=== PATIENT | male | born 1940 | race Caucasian/White ===

== ENCOUNTER 2017-12-28 16:28 | Inpatient (IN) | payer BC, OTHER ==
[~2017-12-28] VITALS: Ht 170.2 cm; Wt 75.2 kg
[~2017-12-28 16:28] MED LIST: CHOL100027 PO; CLON1TAB3 PO; FLM4 PO; IRON PO; LPT10 PO; LSN25 PO; NRN100 PO; PIOG1TAB23 PO; ROPI1TAB29 PO
[2017-12-28] MEDS ORDERED: SODIUM CHLORIDE 0.9% 1000ML 1,000 ML IV STA ×2 (16:51→17:54)
[2017-12-28 17:01] LABS: BASO % 0.1 %; BASO ABS # 0.01 K/uL (0-0.2); EOS % 1.1 %; EOS ABS # 0.08 K/uL (0-0.5); HEMATOCRIT 37.7 % (42-52); HEMOGLOBIN 12.8 g/dL (14.0-18.0); IG# 0.01 K/uL (0.00-0.02); LYMPH ABS # 1.56 K/uL (1.2-3.4); MEAN CELL VOLUME 91.5 fL (80-100); MEAN CORPUSCULAR HEMOGLOBIN 31.1 pg (25-34); MEAN PLATELET VOLUME 9.9 fL (7.4-10.4); MONO % 10.8 %; NEUT % 66.9 %; NEUT ABS # 4.98 K/uL (1.4-6.5); PLATELET COUNT 130 K/uL (130-400); RED CELL DISTRIBUTION WIDTH CV 14.2 % (11.5-14.5); RED CELL DISTRIBUTION WIDTH SD 47.3 fL (36.4-46.3); WHITE BLOOD COUNT 7.44 K/uL (4.8-10.8)
--- NOTE | 2017-12-28 17:12 | EMERGENCY ROOM VISIT NOTE ---
History Report prepared by [place]: Nirali Green Under the Supervision of: Dr. Aric Barker M.D. First contact with patient: 16:38 Chief Complaint: KIDNEY STONE Stated Complaint: KIDNEY STONES, ETC History of Present Illness The patient is a 77 year old male who presents to the Emergency Room with complaints of waxing and waning left-sided flank pain for the past 8 days. His pain has been constant for the past two days. He developed nausea and vomiting and has not had much of an appetite. He went to the [id number] yesterday and had an US. He had follow-up blood work and a CT scan today which revealed an 8mm distal left ureteral stone with hydronephrosis and perinephric stranding , trace free fluid in the left peritoneum, and bilateral nephrolithiasis. He had a creatinine that is at 2.6 from his baseline of 1.8. He was sent to the ED for further evaluation. The patient states that his pain has resolved this afternoon and he currently denies any left-sided flank pain or abdominal pain. The patient does report that he has burning with urination and pain in his penis with urination. He also notes diarrhea 2 days ago which has resolved. He does have a history of kidney stones. The patient denies fevers, chest pain, shortness of breath, and any pain or swelling in his legs. He does not take any blood thinners. He denies any significant cardiac history. The patient has not taken anything for his pain. He denies any modifying factors. Source of History: patient Onset: 8 days ago Position: other (left flank) Timing: waxes/wanes Modifying Factors (Worsening): urination Modifying Factors (Relieving): other (none) Associated Symptoms: + diarrhea, + urinary symptoms, No fevers, No chest pain, No SOB Review of Systems See HPI for pertinent positives & negatives. A total of 10 systems reviewed and were otherwise negative. Past Medical & Surgical Medical Problems: (1) CKD (chronic kidney disease), stage III (2) Diabetes (3) DM type 2 (diabetes mellitus, type 2) (4) GERD (gastroesophageal reflux disease) (5) HTN (hypertension) (6) Kidney stone (7) Open fracture of left great toe (8) Prostate cancer (9) Restless leg syndrome Surgical Problems: (1) H/O gastric bypass (2) History of eye surgery (3) History of hernia repair Family History Diabetes mellitus FHx: cancer Stroke Social History Smoking Status: Former Smoker Smokeless Tobacco Use: No Alcohol Use: occasionally Drug Use: none Marital Status: Housing Status: lives with family Occupation Status: retired Current/Historical Medications Scheduled Atorvastatin (Lipitor), 40 MG PO DAILY Calcitriol (Calcitriol), 0.25 MCG PO DAILY Cholecalciferol (Vitamin D3), 1,000 INTER.UNIT PO DAILY Clonazepam (Klonopin), 1 MG PO HS Ferrous Sulfate (Ferrous Sulfate), 325 MG PO DAILY Gabapentin (Gabapentin), 200 MG PO HS Linagliptin (Tradjenta), 5 MG PO DAILY Metformin HCl (Metformin HCl), 500 MG PO BIDM Multiple Minerals W/ Vitamins (Calcium Citrate +), 2 TAB PO BID Omeprazole (Prilosec), 20 MG PO DAILY Pediatric Multiple Vitamins W/ (Flintstones Plus Iron), 1 TAB PO BID Pioglitazone Hcl (Pioglitazone Hcl), 30 MG PO DAILY Ropinirole HCl (Ropinirole HCl), 1 MG PO QPM Ropinirole Hydrochloride (Requip), 0.5 MG PO QPM Tamsulosin HCl (Tamsulosin HCl), 0.4 MG PO DAILY Valsartan (Valsartan), 40 MG PO DAILY Scheduled PRN Furosemide (Furosemide), 20 MG PO DAILY PRN for Fluid Retention/Weight Gain Hydrocodone/Acetaminophen 5MG/325MG ([place] 5MG/325MG), 1 TABLET PO Q6H PRN for Severe Pain Ondansetron Hcl (Zofran), 8 MG PO Q8 PRN for Nausea Allergies Coded Allergies: No Known Allergies (Verified , 12/28/17) Physical Exam Vital Signs Date Time Temp Pulse Resp B/P (MAP) Pulse Ox O2 Delivery O2 Flow Rate FiO2 12/28/17 20:06 63 105/51 98 12/28/17 18:11 84 112/68 96 Room Air 12/28/17 16:34 36.6 102 20 106/70 99 Room Air Physical Exam GENERAL: Patient is dehydrated appearing and in no acute distress. EYES: No scleral icterus, unremarkable pupils. ENT: Mucous membranes dry, no nasal congestion. NECK: No masses appreciated, no meningismus, trachea is midline. RESPIRATORY: No dyspnea. Clear to auscultation and equal bilaterally. No wheeze , no rhonchi. CARDIOVASCULAR: Tachycardic rate and regular rhythm. No murmurs, rubs, gallops appreciated. GASTROINTESTINAL: Abdomen soft, nontender, no peritonitis. Bowel sounds positive. No masses appreciated. BACK: No midline tenderness, no CVA tenderness EXTREMITIES: Normal motion all extremities, no cyanosis, no edema. NEUROLOGIC: Alert and oriented, no acute motor or sensory deficits, no focal weakness, cranial nerves grossly intact. SKIN: No rash, no jaundice, no diaphoresis. Medical Decision & Procedures Laboratory Results 12/28/17 16:50 Red Blood Count 4.12, Mean Corpuscular Volume 91.5, Mean Corpuscular Hemoglobin 31.1, Mean Corpuscular Hemoglobin Concent 34.0, Mean Platelet Volume 9.9, Neutrophils (%) (Auto) 66.9, Lymphocytes (%) (Auto) 21.0, Monocytes (%) (Auto) 10.8, Eosinophils (%) (Auto) 1.1, Basophils (%) (Auto) 0.1, Neutrophils # (Auto ) 4.98, Lymphocytes # (Auto) 1.56, Monocytes # (Auto) 0.80, Eosinophils # (Auto ) 0.08, Basophils # (Auto) 0.01 12/28/17 16:50 Test 12/28/17 16:50 12/28/17 17:52 White Blood Count 7.44 K/uL (4.8-10.8) Red Blood Count 4.12 M/uL (4.7-6.1) Hemoglobin 12.8 g/dL (14.0-18.0) Hematocrit 37.7 % (42-52) Mean Corpuscular Volume 91.5 fL (80-100) Mean Corpuscular Hemoglobin 31.1 pg (25-34) Mean Corpuscular Hemoglobin Concent 34.0 g/dl (32-36) Platelet Count 130 K/uL (130-400) Mean Platelet Volume 9.9 fL (7.4-10.4) Neutrophils (%) (Auto) 66.9 % Lymphocytes (%) (Auto) 21.0 % Monocytes (%) (Auto) 10.8 % Eosinophils (%) (Auto) 1.1 % Basophils (%) (Auto) 0.1 % Neutrophils # (Auto) 4.98 K/uL (1.4-6.5) Lymphocytes # (Auto) 1.56 K/uL (1.2-3.4) Monocytes # (Auto) 0.80 K/uL (0.11-0.59) Eosinophils # (Auto) 0.08 K/uL (0-0.5) Basophils # (Auto) 0.01 K/uL (0-0.2) RDW Standard Deviation 47.3 fL (36.4-46.3) RDW Coefficient of Variation 14.2 % (11.5-14.5) Immature Granulocyte % (Auto) 0.1 % Immature Granulocyte # (Auto) 0.01 K/uL (0.00-0.02) Prothrombin Time 10.7 SECONDS (9.0-12.0) Prothromb Time International Ratio 1.0 (0.9-1.1) Activated Partial Thromboplast Time 25.6 SECONDS (21.0-31.0) Partial Thromboplastin Ratio 1.0 Urine Color YELLOW Urine Appearance CLOUDY (CLEAR) Urine pH 5.0 (4.5-7.5) Urine Specific [place] 1.018 (1.000-1.030) Urine Protein TRACE (NEG) Urine Glucose (UA) NEG (NEG) Urine Ketones NEG (NEG) Urine Occult Blood 3+ (NEG) Urine Nitrite NEG (NEG) Urine Bilirubin NEG (NEG) Urine Urobilinogen NEG (NEG) Urine Leukocyte Esterase SMALL (NEG) Urine WBC (Auto) 5-10 /hpf (0-5) Urine RBC (Auto) >30 /hpf (0-4) Urine Hyaline Casts (Auto) 1-5 /lpf (0-5) Urine Epithelial Cells (Auto) 20-30 /lpf (0-5) Urine Bacteria (Auto) 1+ (NEG) Urine Yeast (Auto) (NONE PRSENT) Anion Gap 11.0 mmol/L (3-11) Est Creatinine Clear Calc Drug Dose 20.1 ml/min Estimated GFR () 24.0 Estimated GFR (Non- 20.7 BUN/Creatinine Ratio 16.6 (10-20) Calcium Level 8.6 mg/dl (8.5-10.1) C-Reactive Protein 2.29 mg/dl (0-0.29) Laboratory results as reviewed by me. Medications Administered Medications (Trade) Dose Ordered Sig/Rose Route Start Time Stop Time Status Last Admin Dose Admin Sodium Chloride 1,000 ml @ 999 mls/hr Q1H1M STAT IV 12/28/17 16:51 12/28/17 17:51 DC 12/28/17 16:51 999 MLS/HR Sodium Chloride 1,000 ml @ 100 mls/hr Q10H STAT IV 12/28/17 17:54 12/29/17 03:53 12/28/17 18:05 100 MLS/HR Ceftriaxone Sodium 1 gm/ Dextrose 50 ml @ 100 mls/hr ONE STAT IV 12/28/17 19:35 12/28/17 20:04 DC 12/28/17 19:50 100 MLS/HR ED Course 1638: The patient was evaluated in room A4B. A complete history and physical exam was performed. 1650: NSS 1000 ml @ 999 mls/hr IV 1743: The patient passed a stone. He is feeling better. 1753: NSS 1000 ml @ 100 mls/hr IV 1814: I spoke with Josseline Guy PA-C. We discussed the patient's case. The patient will be evaluated by the [facility] for further management. 1817: I reassessed the patient at this time. He is feeling better and resting comfortably. I discussed the results and treatment plan with the patient. I answered all pertaining questions that he had. He expressed understanding and verbalized agreement. Medical Decision Differential: Renal Colic, Pyelonephritis, Hydronephrosis, Appendicitis, Diverticulitis, Retroperitoneal Bleed/Infection, Aortic Pathology, MSK, Neurologic Pathology, amongst other pathologies entertained. 77 yr old male sent over by clinic for left distal ureteral stone with hydro in setting of acute renal failure. Given IV fluids and patient passed 2 stones. Having no pain. Not septic appearing and UA seems more consistent with stone and some epi's than infected. Without pain I feel he has likely passed most stone pieces. Regardless he will need to come in for his renal failure though I do not feel he requires emergent OR as he is completely asymptomatic and not septic currently. Breathing comfortably with initial 1 L NSS and further hydration ordered. Medication Reconcilliation Current Medication List: was personally reviewed by me Blood Pressure Screening Patient's blood pressure: Normal blood pressure Consults Time Called: 1810 Consulting Physician: Josseline Guy PA-C Returned Call: 1814 I spoke with Josseline Guy PA-C. We discussed the patient's case. The patient will be evaluated by the [facility] for further management. Impression Primary Impression: Acute renal failure Additional Impressions: Hydronephrosis, left Ureteral calculus Scribe Attestation The scribe's documentation has been prepared under my direction and personally reviewed by me in its entirety. I confirm that the note above accurately reflects all work, treatment, procedures, and medical decision making performed by me. Departure Information Dispostion Being Evaluated By Hospitalist Referrals Shashi Lewis III, M.D. (PCP) Patient Instructions [facility] Problem Qualifiers
[2017-12-28 17:19] LABS: PTT PATIENT 25.6 SECONDS (21.0-31.0)
[2017-12-28 17:28] LABS: CALCIUM 8.6 mg/dl (8.5-10.1); CREATININE 2.78 mg/dl (0.60-1.40)
[2017-12-28] MEDS ORDERED: LSX20 PO (18:26)
[2017-12-28] MEDS ORDERED: ROPI0.5T PO (18:26)
[2017-12-28] MEDS ORDERED: LINA1TAB PO (18:26)
[2017-12-28] MEDS ORDERED: VALS-56 PO (18:26)
[2017-12-28] MEDS ORDERED: LPT40 PO (18:26)
[2017-12-28] MEDS ORDERED: OMEP20CA9 PO (18:26)
[2017-12-28] MEDS ORDERED: GLC500 PO (18:26)
[2017-12-28] MEDS ORDERED: CALC1CAP36 PO (18:26)
[2017-12-28] MEDS ORDERED: CHOL1000 PO (18:29)
[2017-12-28] MEDS ORDERED: ONDA-170 PO (18:29)
[2017-12-28] MEDS ORDERED: FERR325T5 PO (18:34)
[2017-12-28] MEDS ORDERED: HYDR-5688 PO (18:34)
[2017-12-28] MEDS ORDERED: MULT-360 PO ×2 (18:34→19:16)
[2017-12-28] MEDS ORDERED: PEDICHW44 PO (18:34)
[2017-12-28] MEDS ORDERED: ACETAMINOPHEN 325 MG TAB PO PRN (19:15)
[2017-12-28] MEDS ORDERED: ONDANSETRON INJ 2 MG/ML 2 ML VIAL IV PRN (19:15)
[2017-12-28] MEDS ORDERED: MAGNESIUM HYDROXIDE SUSP 30 ML UDC PO PRN (19:15)
[2017-12-28] MEDS ORDERED: CEFTRIAXONE SOD INJ 1 GM in DEXTROSE 5% ADD-VANTAGE 50ML 50 ML IV STA (19:35)
[2017-12-28] MEDS ORDERED: GLUCAGON FOR INJ 1 MG VIAL SQ PRN ×2 (20:00→20:30)
[2017-12-28] MEDS ORDERED: GLUCOSE 40% GEL 15 GM TUBE PO PRN ×2 (20:00→20:30)
[2017-12-28] MEDS ORDERED: GLUCOSE 10 TABS/TUBE PO PRN ×2 (20:00→20:30)
[2017-12-28] MEDS ORDERED: DEXTROSE 50% 50 ML SYR IV PRN ×2 (20:00→20:30)
--- NOTE | 2017-12-28 20:04 | History and Physical ---
History & Physical Date & Time of Service: Dec 28, 2017 at 19:24 Chief Complaint: Kidney Stones, Etc Primary Care Physician: Shashi Lewis III, M.D. History of Present Illness Source: patient, clinic records, hospital records Pt is 77 y/o M with PMH prostate CA s/p radiation, kidney stones, HTN, dyslipidemia, GERD, DM II, CKD III presented to ER with chief complaint left flank pain 1 week. Patient reports left flank pain with radiation to left groin for the past 7-8 days with increased pain past 2 days. Had some nausea past 2 days. Hasn't been eating well past 2 days, however reports has been drinking fluids. Having some dysuria and noticed some hematuria. Reports was seen outpatient urgent care yesterday and was told had blood in his urine. Patient followed up with PCP today and had an CT abdomen pelvis showing left hydroureter and hydronephrosis with 8 mm obstructing stone within the left distal ureter, with associated left perinephric stranding. He was prescribed hydrocodone as needed pain and Zofran as needed nausea. However patient states he did not hit felt yet as he was referred to ER. Since arrival to ER patient reports that he is straining his urine and passed kidney stone. Since patient without any discomfort. Denies fever/chills, diaphoresis, V/D/C, GARRIDO, dizziness, syncope, vision changes, neck pain, CP, SOB, orthopnea, palpitations, cough, sore throat, choking, otalgia, rhinorrhea, paresthesias, weakness, extremity weakness, extremity edema, rashes. Past Medical/Surgical History Medical Problems: (1) CKD (chronic kidney disease), stage III Status: Chronic (2) DM type 2 (diabetes mellitus, type 2) Status: Chronic (3) GERD (gastroesophageal reflux disease) Status: Chronic (4) HTN (hypertension) Status: Chronic (5) Open fracture of left great toe Status: Resolved (6) Prostate cancer Permanent Comment: s/p radiation Status: Chronic Surgical Problems: (1) H/O gastric bypass Status: Resolved (2) History of eye surgery Status: Resolved (3) History of hernia repair Status: Resolved Family History Diabetes mellitus FHx: cancer Stroke Social History Smoking Status: Former Smoker Smokeless Tobacco Use: No Alcohol Use: occasionally Drug Use: none Marital Status: Occupational Status: retired Allergies Coded Allergies: No Known Allergies (Verified , 12/28/17) Home Medications Scheduled Atorvastatin (Lipitor), 40 MG PO DAILY Calcitriol (Calcitriol), 0.25 MCG PO DAILY Cholecalciferol (Vitamin D3), 1,000 INTER.UNIT PO DAILY Clonazepam (Klonopin), 1 MG PO HS Ferrous Sulfate (Ferrous Sulfate), 325 MG PO DAILY Gabapentin (Gabapentin), 200 MG PO HS Linagliptin (Tradjenta), 5 MG PO DAILY Metformin HCl (Metformin HCl), 500 MG PO BIDM Multiple Minerals W/ Vitamins (Calcium Citrate +), 2 TAB PO BID Omeprazole (Prilosec), 20 MG PO DAILY Pediatric Multiple Vitamins W/ (Flintstones Plus Iron), 1 TAB PO BID Pioglitazone Hcl (Pioglitazone Hcl), 30 MG PO DAILY Ropinirole HCl (Ropinirole HCl), 1 MG PO QPM Ropinirole Hydrochloride (Requip), 0.5 MG PO QPM Tamsulosin HCl (Tamsulosin HCl), 0.4 MG PO DAILY Valsartan (Valsartan), 40 MG PO DAILY Scheduled PRN Furosemide (Furosemide), 20 MG PO DAILY PRN for Fluid Retention/Weight Gain Hydrocodone/Acetaminophen 5MG/325MG ([place] 5MG/325MG), 1 TABLET PO Q6H PRN for Severe Pain Ondansetron Hcl (Zofran), 8 MG PO Q8 PRN for Nausea Review of Systems Constitutional: No fever, No chills, No sweats, No weight loss Eyes: No eye pain, No redness, No diplopia ENT: No hearing loss, No unusual epistaxis, No nasal symptoms, No sore throat, No tinnitus, No trouble swallowing Respiratory: No cough, No sputum, No wheezing, No shortness of breath, No dyspnea on exertion, No dyspnea at rest, No hemoptysis Cardiovascular: No chest pain, No orthopnea, No PND, No edema, No palpitations Abdomen: + problem reported (see HPI), No GI bleeding Musculoskeletal: No joint pain, No muscle pain, No swelling, No calf pain Genitourinary - Male: + problem reported (See HPI) Neurologic: No weakness, No numbness/tingling, No vertigo Hematologic / Lymphatic: No abnormal bleeding/bruising, No clotting problems, No swollen lymph nodes, No night sweats Integumentary: No rash, No itch Physical Exam Vital Signs Date Time Temp Pulse Resp B/P (MAP) Pulse Ox O2 Delivery O2 Flow Rate FiO2 12/28/17 18:11 84 112/68 96 Room Air 12/28/17 16:34 36.6 102 20 106/70 99 Room Air General Appearance: WD/WN, no apparent distress Head: normocephalic, atraumatic ENT: hearing grossly normal, pharynx normal, + pertinent finding (mucous membranes moist) Neck: supple, no JVD, trachea midline Respiratory/Chest: lungs clear, normal breath sounds, no respiratory distress Cardiovascular: regular rate, rhythm, no murmur, normal peripheral pulses Abdomen/GI: normal bowel sounds, non tender, soft Back: no CVA tenderness Extremities/Musculoskelatal: normal inspection, normal capillary refill, no pedal edema, normal range of motion, non-tender Neurologic/Psych: alert, normal mood/affect, oriented x 3 Skin: normal color, warm/dry Diagnostics Laboratory Results Results Past 24 Hours Test 12/28/17 16:50 12/28/17 17:52 Range/Units White Blood Count 7.44 4.8-10.8 K/uL Red Blood Count 4.12 4.7-6.1 M/uL Hemoglobin 12.8 14.0-18.0 g/dL Hematocrit 37.7 42-52 % Mean Corpuscular Volume 91.5 80-100 fL Mean Corpuscular Hemoglobin 31.1 25-34 pg Mean Corpuscular Hemoglobin Concent 34.0 32-36 g/dl Platelet Count 130 130-400 K/uL Mean Platelet Volume 9.9 7.4-10.4 fL Neutrophils (%) (Auto) 66.9 % Lymphocytes (%) (Auto) 21.0 % Monocytes (%) (Auto) 10.8 % Eosinophils (%) (Auto) 1.1 % Basophils (%) (Auto) 0.1 % Neutrophils # (Auto) 4.98 1.4-6.5 K/uL Lymphocytes # (Auto) 1.56 1.2-3.4 K/uL Monocytes # (Auto) 0.80 0.11-0.59 K/uL Eosinophils # (Auto) 0.08 0-0.5 K/uL Basophils # (Auto) 0.01 0-0.2 K/uL RDW Standard Deviation 47.3 36.4-46.3 fL RDW Coefficient of Variation 14.2 11.5-14.5 % Immature Granulocyte % (Auto) 0.1 % Immature Granulocyte # (Auto) 0.01 0.00-0.02 K/uL Prothrombin Time 10.7 9.0-12.0 SECONDS Prothromb Time International Ratio 1.0 0.9-1.1 Activated Partial Thromboplast Time 25.6 21.0-31.0 SECONDS Partial Thromboplastin Ratio 1.0 Urine Color YELLOW Urine Appearance CLOUDY CLEAR Urine pH 5.0 4.5-7.5 Urine Specific [place] 1.018 1.000-1.030 Urine Protein TRACE NEG Urine Glucose (UA) NEG NEG Urine Ketones NEG NEG Urine Occult Blood 3+ NEG Urine Nitrite NEG NEG Urine Bilirubin NEG NEG Urine Urobilinogen NEG NEG Urine Leukocyte Esterase SMALL NEG Urine WBC (Auto) 5-10 0-5 /hpf Urine RBC (Auto) >30 0-4 /hpf Urine Hyaline Casts (Auto) 1-5 0-5 /lpf Urine Epithelial Cells (Auto) 20-30 0-5 /lpf Urine Bacteria (Auto) 1+ NEG Urine Yeast (Auto) NONE PRSENT Sodium Level 138 136-145 mmol/L Potassium Level 4.0 3.5-5.1 mmol/L Chloride Level 108 98-107 mmol/L Carbon Dioxide Level 19 21-32 mmol/L Anion Gap 11.0 3-11 mmol/L Blood Urea Nitrogen 46 7-18 mg/dl Creatinine 2.78 0.60-1.40 mg/dl Est Creatinine Clear Calc Drug Dose 20.1 ml/min Estimated GFR () 24.0 Estimated GFR (Non- 20.7 BUN/Creatinine Ratio 16.6 10-20 Random Glucose 100 70-99 mg/dl Calcium Level 8.6 8.5-10.1 mg/dl C-Reactive Protein 2.29 0-0.29 mg/dl Microbiology Results 12/28/17 Urine Culture, Received Pending Diagnostic Radiology 12/28/2017 2:[address] abdomen/pelvis without contrast -done outpatient Impression: 1. Obstructing distal left ureteral stone with associated left hydroureter, hydronephrosis and perinephritic stranding. Superimposed infection is not excluded on this noncontrast examination. 2. Trace free fluid, most notably within the left retroperitoneum. 3. Bilateral nonobstructing nephrolithiasis. Impression Assessment and Plan RENAL COLIC/HYDRONEPHROSIS Pt passed kidney stone while in ER today. Stone sent for analysis. Pt without discomfort or nausea since passing stone. No leukocytosis. U/A: 3+blood, small leukocyte esterase, 5-10 WBC, >30 RBC, 20-30 epithelial, 1+bacteria -continue flomax -IVF -Rocephin IV initial dose while urine culture pending -monitor CBC, PRP LIMA Cr: 2.7. baseline 1.8 -IVF -monitor renal functions -avoid nephrotoxic agents when possible -consider nephrology consult if no improvement Hx PROSTATE CA S/P RADIATION -continue flomax CHRONIC ANEMIA Hgb: 12.8 (baseline 12). No active bleeding -monitor cbc DM II HA1c: 6.0 on 09/2017 -hold oral agents -Novolog sliding scale per protocol HTN stable -hold valsartan, lasix at this time DYSLIPIDEMIA -continue atorvastatin GERD -continue PPI RLS -continue requip DVT Prophylaxis -Heparin SQ Disposition admit tele Full Code as per discussion with pt Follows with Dr Lewis for routine care Pt was seen with Dr Whyte. See addendum Attending Note: Patient is a 77 yr male with multiple comorbidities presents with history of left flank pain radiating to left groin pain since 1 week duration. Reports associated nausea and vomiting. Patient also noticed hematuria and dysuria. While in ED, patient passed the stone and currently is pain free. Denies any chest pain, SOB, dizziness, fever, chills. Physical Exam: Vitals signs as noted above General Appearance:Moderately built and nourished, no apparent distress Head: normocephalic, Atraumatic Eyes: normal inspection, EOMI, PERRL Neck: supple, Trachea midline Respiratory/Chest: Normal breath sounds, CTA Cardiovascular: S1, S2, + Murmur Abdomen/GI:Soft, Non tender, Bowel sounds present Extremities/Musculoskelatal:normal inspection, no edema Neurologic/Psych:AAOX3, grossly no focal neurological deficits Skin:normal color,warm Assessment and Plan: Renal Colic Obstructive Uropathy Spontaneously passed the stone while in ED Continue IV fluids, flomax UA contaminated: Will give 1 dose of ceftriaxone FU cultures LIMA on CKD III: 2/2 above Hold Valsartan, lasix IV fluids Monitor renal function avoid Nephrotoxic agents as able I personally reviewed the record. Patient is interviewed and examined at bedside. Patient's care is coordinated with Ashlyn Liz PA-C. Please refer to the documentation above for details of patient's presentation and for discussion of other issues. Resuscitation Status Full code VTE Prophylaxis Will order VTE Prophylaxis: Yes Additional Copies To Shashi Lewis III, M.D.
[2017-12-28 20:19] VITALS: BP 111/69; PULSE 75; TEMP 36.8; O2SAT 99; Ht 170.2 cm; Wt 75.2 kg
[2017-12-28] MEDS: SODIUM CHLORIDE 0.9% 1000ML 1,000 ML IV SCH (20:33)
[2017-12-28] MEDS ORDERED: ROPINIROLE HCL 0.25 MG TAB PO SCH (21:00)
[2017-12-28] MEDS ORDERED: GABAPENTIN 100 MG CAP PO SCH (21:00)
[2017-12-28] MEDS: INSULIN ASPART 100 UNITS/ML 3 ML PEN SC SCH (21:00)
[2017-12-28] MEDS ORDERED: CLONAZEPAM 1 MG TAB PO SCH (21:00)
[2017-12-28] MEDS ORDERED: ROPINIROLE HCL 1 MG TAB PO SCH (21:00)
[2017-12-28] MEDS: FLINTSTONES COMPLETE CHEWABLE TAB PO SCH (21:38)
[2017-12-28] MEDS: HEPARIN SOD 5000 UNIT/0.5 ML CARP SQ SCH (21:42)
[2017-12-28 22:55] VITALS: BP 108/71; PULSE 77; TEMP 36.6; O2SAT 97
[2017-12-28] MEDS ORDERED: NURSING VERBAL MED ORDER ONE (23:15)
[2017-12-29 00:05] VITALS: O2SAT 98
[2017-12-29 06:55] LABS: HEMOGLOBIN 11.1 g/dL (14.0-18.0); MEAN CELL VOLUME 91.7 fL (80-100); MEAN CORPUSCULAR HEMOGLOBIN 30.8 pg (25-34); MEAN CORPUSCULAR HGB CONC 33.6 g/dl (32-36); MEAN PLATELET VOLUME 9.5 fL (7.4-10.4); PLATELET COUNT 107 K/uL (130-400); RED CELL DISTRIBUTION WIDTH CV 14.3 % (11.5-14.5); RED CELL DISTRIBUTION WIDTH SD 48.3 fL (36.4-46.3); WHITE BLOOD COUNT 5.21 K/uL (4.8-10.8)
[2017-12-29] MEDS: SODIUM CHLORIDE 0.9% 1000ML 1,000 ML IV SCH (07:00)
[2017-12-29 07:19] LABS: CALCIUM 7.7 mg/dl (8.5-10.1); CREATININE 2.18 mg/dl (0.60-1.40)
[2017-12-29 07:41] VITALS: BP_SYST 114; BP_SYST 118; BP_DIAS 70; BP_DIAS 71; PULSE 64; TEMP 36.5; O2SAT 97
[2017-12-29] MEDS: INSULIN ASPART 100 UNITS/ML 3 ML PEN SC SCH ×2 (08:00→12:50)
[2017-12-29 08:19] VITALS: O2SAT 97
[2017-12-29] MEDS: FLINTSTONES COMPLETE CHEWABLE TAB PO SCH (08:47)
[2017-12-29] MEDS: HEPARIN SOD 5000 UNIT/0.5 ML CARP SQ SCH (08:50)
[2017-12-29] MEDS ORDERED: ATORVASTATIN 40 MG TAB PO SCH (09:00)
[2017-12-29] MEDS ORDERED: PANTOprazole SOD 40 MG TAB PO SCH (09:00)
[2017-12-29] MEDS ORDERED: CHOLECALCIFEROL 1000 INTER.UNIT TAB PO SCH (09:00)
[2017-12-29] MEDS ORDERED: TAMSULOSIN HCL 0.4 MG CAP PO SCH (09:00)
[2017-12-29] MEDS ORDERED: PIOGLITAZONE TAB 15 MG TAB PO SCH (09:00)
[2017-12-29] MEDS ORDERED: VALSARTAN 80 MG TAB PO SCH (09:00)
[2017-12-29] MEDS ORDERED: FERROUS SULFATE 325 MG TAB PO SCH (09:00)
[2017-12-29] MEDS ORDERED: CALCITRIOL 0.25 MCG CAP PO SCH (09:00)
[2017-12-29 15:27] VITALS: BP 128/77; PULSE 69; TEMP 37.1; O2SAT 97
[2017-12-29 16:51] VITALS: BP 128/77; PULSE 69; TEMP 37.1; O2SAT 97
--- NOTE | 2017-12-29 17:18 | Progress Note ---
Medicine Progress Note Date & Time of Visit: Dec 29, 2017 at 17:18. Objective Last 8 Hrs Date Time Temp Pulse Resp B/P (MAP) Pulse Ox O2 Delivery O2 Flow Rate FiO2 12/29/17 16:51 37.1 69 16 97 Room Air 12/29/17 15:27 37.1 69 16 128/77 (94) 97 Room Air 12/29/17 15:25 Room Air Physical Exam: General-[] Eyes-[] ENT-[] Neck-[] Lungs-[] Heart-[] Abdomen-[] Extremities-[] Neuro-[] Laboratory Results: Last 24 Hours Test 12/28/17 17:52 12/28/17 20:52 12/29/17 06:30 12/29/17 08:22 Bedside Glucose 117 mg/dl 83 mg/dl White Blood Count 5.21 K/uL Red Blood Count 3.60 M/uL Hemoglobin 11.1 g/dL Hematocrit 33.0 % Mean Corpuscular Volume 91.7 fL Mean Corpuscular Hemoglobin 30.8 pg Mean Corpuscular Hemoglobin Concent 33.6 g/dl RDW Standard Deviation 48.3 fL RDW Coefficient of Variation 14.3 % Platelet Count 107 K/uL Mean Platelet Volume 9.5 fL Sodium Level 142 mmol/L Potassium Level 4.0 mmol/L Chloride Level 111 mmol/L Carbon Dioxide Level 23 mmol/L Anion Gap 7.0 mmol/L Blood Urea Nitrogen 42 mg/dl Creatinine 2.18 mg/dl Est Creatinine Clear Calc Drug Dose 25.7 ml/min Estimated GFR () 32.2 Estimated GFR (Non- 27.8 BUN/Creatinine Ratio 19.1 Random Glucose 87 mg/dl Calcium Level 7.7 mg/dl Test 12/29/17 12:14 Bedside Glucose 90 mg/dl Assessment & Plan Current Inpatient Medications: Current Inpatient Medications Medications (Trade) Dose Ordered Sig/Rose Route Start Time Stop Time Status Last Admin Dose Admin Acetaminophen (Tylenol Tab) 650 mg Q4H PRN PO 12/28/17 19:15 01/27/18 19:14 Magnesium Hydroxide (Milk Of Magnesia Susp) 30 ml Q6H PRN PO 12/28/17 19:15 01/27/18 19:14 Ondansetron HCl (Zofran Inj) 4 mg Q6H PRN IV 12/28/17 19:15 01/27/18 19:14 Heparin Sodium (Porcine) (Heparin Sq 5000 Unit/0.5ml) 5,000 unit Q12H SQ 12/28/17 21:00 01/27/18 20:59 12/29/17 08:50 5,000 UNIT Sodium Chloride 1,000 ml @ 75 mls/hr [id number] IV 12/28/17 20:20 01/27/18 20:19 12/29/17 07:00 75 MLS/HR Atorvastatin Calcium (Lipitor Tab) 40 mg DAILY PO 12/29/17 09:00 01/28/18 08:59 12/29/17 08:47 40 MG Calcitriol (Rocaltrol Cap) 0.25 mcg DAILY PO 12/29/17 09:00 01/28/18 08:59 12/29/17 08:47 0.25 MCG Cholecalciferol (Vitamin D Tab) 1,000 inter.unit DAILY PO 12/29/17 09:00 01/28/18 08:59 12/29/17 08:47 1,000 INTER.UNIT Clonazepam (Klonopin Tab) 1 mg HS PO 12/28/17 21:00 01/27/18 20:59 12/28/17 21:36 1 MG Ferrous Sulfate (Feosol Tab) 325 mg DAILY PO 12/29/17 09:00 01/28/18 08:59 12/29/17 08:47 325 MG Gabapentin (Neurontin Cap) 200 mg HS PO 12/28/17 21:00 01/27/18 20:59 12/28/17 21:37 200 MG Tamsulosin HCl (Flomax Cap) 0.4 mg DAILY PO 12/29/17 09:00 01/28/18 08:59 12/29/17 08:48 0.4 MG Miscellaneous Information (Order Awaiting Action) 1 ea QS N/A 12/29/17 00:00 01/28/18 00:00 Pantoprazole Sodium (Protonix Tab) 40 mg DAILY PO 12/29/17 09:00 01/28/18 08:59 12/29/17 08:48 40 MG Multivitamins (Flintstones Complete Tab) 1 tab BID PO 12/28/17 21:00 01/27/18 20:59 12/29/17 08:47 1 TAB Pioglitazone HCl (ACTos TAB) 30 mg DAILY PO 12/29/17 09:00 01/28/18 08:59 Future Hold 12/29/17 08:48 30 MG Insulin Aspart (novoLOG ASPART) SLIDING SCALE If C... ACHS SC 12/28/17 21:00 01/27/18 20:59 12/29/17 12:50 1 UNITS Glucose (Glucose 40% Gel) 15-30 GRAMS 15 GRAMS... UD PRN PO 12/28/17 20:00 01/27/18 19:59 Glucose (Glucose Chew Tab) 4-8 Tablets 4 Tabl... UD PRN PO 12/28/17 20:00 01/27/18 19:59 Dextrose (Dextrose 50% 50ML Syringe) 25-50ML OF 50% DW IV FOR... UD PRN IV 12/28/17 20:00 01/27/18 19:59 Glucagon (Glucagon Inj) 1 mg UD PRN SQ 12/28/17 20:00 01/27/18 19:59 Glucose (Glucose 40% Gel) 15-30 GRAMS 15 GRAMS... UD PRN PO 12/28/17 20:30 01/27/18 20:29 Glucose (Glucose Chew Tab) 4-8 Tablets 4 Tabl... UD PRN PO 12/28/17 20:30 01/27/18 20:29 Dextrose (Dextrose 50% 50ML Syringe) 25-50ML OF 50% DW IV FOR... UD PRN IV 12/28/17 20:30 01/27/18 20:29 Glucagon (Glucagon Inj) 1 mg UD PRN SQ 12/28/17 20:30 01/27/18 20:29 Ropinirole HCl (Requip Tab) 1 mg DAILY@1800 PO 12/29/17 18:00 01/28/18 17:59 Ropinirole HCl (Requip Tab) 0.5 mg HS PO 12/29/17 21:00 01/28/18 20:59
[2017-12-29] MEDS ORDERED: KFL500 PO (17:20)
[2017-12-29] MEDS ORDERED: ROPINIROLE HCL 1 MG TAB PO SCH (18:00)
[2017-12-29] MEDS ORDERED: ROPINIROLE HCL 0.25 MG TAB PO SCH (21:00)
== END 2017-12-29 19:00 | disposition home or self-care (01) | DRG 694 ==
LOC: C.EDB 16:29 → C.MSN 19:03 → EDBEDREQSVC 19:11 → ENRESERV 19:26
PROVIDERS: ADMIT Internal Medicine; ATTEND Hospitalist
DX: N13.2 Hydronephrosis with renal and ureteral calculous obstruction (principal); N23 Unspecified renal colic; N17.9 Acute kidney failure, unspecified; D64.9 Anemia, unspecified; E11.22 Type 2 diabetes mellitus with diabetic chronic kidney disease; I12.9 Hypertensive chronic kidney disease with stage 1 through stage 4 chronic kidney disease, or unspecified chronic kidney disease; N18.3 Chronic kidney disease, stage 3 (moderate); E78.5 Hyperlipidemia, unspecified; K21.9 Gastro-esophageal reflux disease without esophagitis; G25.81 Restless legs syndrome; Z85.46 Personal history of malignant neoplasm of prostate; Z92.3 Personal history of irradiation; Z87.891 Personal history of nicotine dependence; Z83.3 Family history of diabetes mellitus; Z82.3 Family history of stroke; Z79.84 Long term (current) use of oral hypoglycemic drugs; Z79.899 Other long term (current) drug therapy

== ENCOUNTER → 2017-12-30 | Outpatient (CLI) | payer BC ==
[~2017-12-30] MED LIST changes: +CALC1CAP36 PO; +CHOL1000 PO; -CHOL100027 PO; +FERR325T5 PO; +GLC500 PO; +HYDR-5688 PO; -IRON PO; +KFL500 PO; +LINA1TAB PO; -LPT10 PO; +LPT40 PO; -LSN25 PO; +LSX20 PO; +MULT-360 PO; +OMEP20CA9 PO; +ONDA-170 PO; +PEDICHW44 PO; +ROPI0.5T PO; +VALS-56 PO
--- NOTE | 2017-12-30 14:19 | DIAGNOSTIC IMAGING REPORT ---
KUB CLINICAL HISTORY: Dysuria. Left-sided kidney stone. Findin AP supine abdominal radiographs are correlated with abdominal CT dated 12/28/2017. There is a nonobstructed abdominal bowel gas pattern noting moderate colonic fecal retention. A 9 mm calculus projects over the left vesicoureteral junction. This is consistent with an obstructing ureteral stone when correlated with the 12/28/[address] scan. No additional calculi are seen projecting over either kidney. Suture closure projects over the left upper quadrant. Surgical clips project over the prostate gland. The skeletal structures are osteopenic. Moderate lumbosacral spondylosis and scoliosis is observed. There is heterogeneous sclerotic change noted throughout the bony pelvis. IMPRESSION: 1. There is a 9 mm structure calculus in the distal left ureter. 2. No additional renal calculi are seen by x-ray. 3. Moderate constipation. Colonic contents largely obscured the renal shadows. 4. Heterogeneous sclerotic change is seen throughout the bony pelvis. This is pathologically indeterminant. Metastatic disease is not excluded if there is a history of prostate cancer. Electronically signed by: Lion Heard M.D. 12/30/2017 2:18 PM Dictated Date/Time: 12/30/2017 2:13 PM
== END | disposition home or self-care (01) ==
LOC: C.RADBC 14:03
PROVIDERS: ATTEND Urology
DX: R39.9 Unspecified symptoms and signs involving the genitourinary system (principal); N20.1 Calculus of ureter

== ENCOUNTER → 2018-01-06 | Outpatient (CLI) | payer BC ==
--- NOTE | 2018-01-06 10:47 | DIAGNOSTIC IMAGING REPORT ---
KUB HISTORY: Nephrolithiasis. COMPARISON: KUB 12/30/2017. Outside hospital abdomen and pelvis CT 12/28/2017. FINDINGS: Moderate well-formed stool seen throughout the colon. No evidence for bowel obstruction. No change in the 9 mm stone within the distal left ureter/ureterovesical junction. There are few punctate bilateral renal calculi, unchanged. 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 Patchy sclerotic foci seen within the sacrum, iliac bones, and bilateral acetabula. This remains unchanged. No pneumoperitoneum or pneumatosis. IMPRESSION: 1. No change in the 9 mm stone within the distal left ureter/ureterovesical junction. 2. Stable bilateral nephrolithiasis. 3. Redemonstration of the sclerotic lesions within the pelvis. Electronically signed by: Yazan Gomez M.D. 01/06/2018 10:45 AM Dictated Date/Time: 01/06/2018 10:43 AM
[2018-01-06 12:22] LABS: POTASSIUM 4.5 mmol/L (3.5-5.1)
== END | disposition home or self-care (01) ==
LOC: C.CPL 10:14
PROVIDERS: ATTEND Urology
DX: N20.0 Calculus of kidney (principal)

== ENCOUNTER → 2018-01-07 | Day surgery (SDC) | payer BC ==
[2018-01-06 14:23] VITALS: Ht 170.2 cm; Wt 75.0 kg
[~2018-01-07] VITALS: Ht 170.2 cm; Wt 75.0 kg
[~2018-01-07] MED LIST changes: +ATROPINE SULFATE 0.1 MG/ML 5ML SYR IV PRN; +CIPROFLOXACIN 400MG / D5W IV SCH; +DEXAMETHASONE SOD INJ 4 MG/ML VIAL ONE; +EpHEDrine SULFATE INJ 50 MG/ML AMP IV PRN; +FENTANYL CITRATE INJ 50 MCG/1 ML 2 ML VIAL IV PRN; +FENTANYL CITRATE INJ 50 MCG/1 ML 2 ML VIAL ONE; +HYDROmorphone INJ 2 MG/ML SYR/VIAL IV PRN; +LACTATED RINGER'S 1000ML 1,000 ML IV SCH; +LIDOCAINE HCL 2% 2 ML VIAL (20MG/ML) ONE; +ONDANSETRON INJ 2 MG/ML 2 ML VIAL IV PRN; +ONDANSETRON INJ 2 MG/ML 2 ML VIAL ONE; +OXYCODONE/ACETAMINOPHEN 5-325 TAB PO PRN; +PHENYLEPHRINE 100MCG/ML 5ML SYR IV PRN; +PROPOFOL IV EMULSION 10 MG/ML 20 ML VIAL IV ONE
--- NOTE | 2018-01-07 09:44 | History & Physical Bridge Note ---
H&P Re-Evaluation Bridge Note: I have examined the patient, reviewed the History & Physical and in the interval since the performance of the History & Physical I have noted the following changes of clinical significance: No changes noted
--- NOTE | 2018-01-07 10:41 | Discharge Instructions ---
Discharge Instructions Date of Service Jan 07, 2018. Admission Reason for Admission: Stones Discharge Discharge Diagnosis / Problem: L distal ureteral stone s/p ESWL Discharge Goals Goal(s): Decrease discomfort, Improve function, Improve disease control, Therapeutic intervention Activity Recommendations Activity Limitations: as noted below Lifting Limitations: no more than 25 pounds, gradually increase as tolerated Exercise/Sports Limitations: rest today, gradually increase as tolerated May Resume Sexual Activity: when tolerated Shower/Bathe: no limitations Driving or Machine Use: resume 1 day after discharge . Instructions / Follow-Up Instructions / Follow-Up Follow-up in office as scheduled with KUB Xray before visit. Strain urine as instructed, bring fragments in to office visit. Current Hospital Diet Patient's current hospital diet: Discharge Diet Recommended Diet: Regular Diet (good fluid intake) Procedures Procedures Performed: ESWL of left distal ureteral stone Pending Studies Studies pending at discharge: yes List of pending studies: KUB Xray before visit Medical Emergencies . Who to Call and When: Medical Emergencies: If at any time you feel your situation is an emergency, please call 911 immediately. . Non-Emergent Contact Non-Emergency issues call your: Urologist Call Non-Emergent contact if: you have a fever, temperature is above 101, your pain is not controlled, your pain is worsening, your pain is unusual for you, your pain is concerning you, you have any medication questions . . "Provider Documentation" section prepared by Ryan Kam. .
--- NOTE | 2018-01-07 10:45 | [facility] Operative Report ---
Operative Report Operative Date Jan 07, 2018. Pre-Operative Diagnosis Left 9 mm distal ureteral stone Post-Operative Diagnosis Same Procedure(s) Performed ESWL of left distal ureteral stone Surgeon Eddy Burroughs [place] Hand Surgeon(s) NA Estimated Blood Loss NA Findings Good stone fragmentation on fluoroscopy Specimens NA Drains None Anesthesia Type General Complication(s) none Disposition no Recovery Room / PACU Indications 77 yo male with a left distal ureteral stone persisting on KUB here for ESWL. IV Cipro provided for coverage and SCDs for DVT prophylaxis. Please see H&P for further details. Description of Procedure The patient was brought to the litho suite. He was correctly identified and the stone was visualized on her most recent x-rays. After the correct time out was performed the patient was positioned over the therapy head. An adequate level of anesthesia was administered. The extracorporeal shockwave lithotripsy treatment was then commenced. Please see the [facility] sheet for complete treatment summary. After completion of the procedure the patient was taken to the recovery room in stable condition. I attest to the content of the Intraoperative Record and any orders documented therein. Any exceptions are noted below.
[2018-01-07 12:54] VITALS: BP 130/78; PULSE 61; O2SAT 100
--- NOTE | 2018-01-07 13:58 | Anesthesia Progress Nt - [facility] ---
Anesthesia Post Op Note Date & Time Jan 07, 2018 at 13:58 Vital Signs Pain Intensity: 0 Vital Signs Past 12 Hours Date Time Temp Pulse Resp B/P (MAP) Pulse Ox O2 Delivery O2 Flow Rate FiO2 01/07/18 12:54 61 18 130/78 (95) 100 Room Air 01/07/18 12:23 36.0 54 18 149/85 (106) 99 Room Air 01/07/18 12:16 137/77 01/07/18 12:15 36.5 53 20 137/77 98 Room Air 01/07/18 12:14 58 13 98 01/07/18 12:14 59 13 01/07/18 12:11 143/80 01/07/18 12:09 53 14 01/07/18 12:09 53 14 99 01/07/18 12:06 137/86 01/07/18 12:04 57 15 01/07/18 12:04 56 15 100 01/07/18 12:01 135/67 01/07/18 11:59 58 13 01/07/18 11:59 58 13 100 01/07/18 11:56 136/82 01/07/18 11:54 62 16 01/07/18 11:54 60 16 100 01/07/18 11:51 137/79 01/07/18 11:49 61 16 100 01/07/18 11:49 63 16 01/07/18 11:46 133/74 01/07/18 11:45 129/79 01/07/18 11:44 59 01/07/18 11:44 59 99 01/07/18 11:44 36.2 58 16 129/79 99 Mask 6 01/07/18 09:00 36.5 63 20 126/84 (98) 99 Room Air Notes Mental Status: alert / awake / arousable, participated in evaluation Pt Amnestic to Procedure: Yes Nausea / Vomiting: adequately controlled Pain: adequately controlled Airway Patency, RR, SpO2: stable & adequate BP & HR: stable & adequate Hydration State: stable & adequate Anesthetic Complications: no major complications apparent
== END | disposition home or self-care (01) ==
LOC: X.SURG 08:41
PROVIDERS: ATTEND Urology
DX: N20.1 Calculus of ureter (principal); G47.33 Obstructive sleep apnea (adult) (pediatric); K21.9 Gastro-esophageal reflux disease without esophagitis; E11.9 Type 2 diabetes mellitus without complications; N18.3 Chronic kidney disease, stage 3 (moderate); Z85.46 Personal history of malignant neoplasm of prostate

== ENCOUNTER → 2018-01-24 | Outpatient (CLI) | payer BC ==
[~2018-01-24] MED LIST changes: -ATROPINE SULFATE 0.1 MG/ML 5ML SYR IV PRN; -CIPROFLOXACIN 400MG / D5W IV SCH; -DEXAMETHASONE SOD INJ 4 MG/ML VIAL ONE; -EpHEDrine SULFATE INJ 50 MG/ML AMP IV PRN; -FENTANYL CITRATE INJ 50 MCG/1 ML 2 ML VIAL IV PRN; -FENTANYL CITRATE INJ 50 MCG/1 ML 2 ML VIAL ONE; -HYDROmorphone INJ 2 MG/ML SYR/VIAL IV PRN; -LACTATED RINGER'S 1000ML 1,000 ML IV SCH; -LIDOCAINE HCL 2% 2 ML VIAL (20MG/ML) ONE; -ONDANSETRON INJ 2 MG/ML 2 ML VIAL IV PRN; -ONDANSETRON INJ 2 MG/ML 2 ML VIAL ONE; -OXYCODONE/ACETAMINOPHEN 5-325 TAB PO PRN; -PHENYLEPHRINE 100MCG/ML 5ML SYR IV PRN; -PROPOFOL IV EMULSION 10 MG/ML 20 ML VIAL IV ONE
--- NOTE | 2018-01-24 09:12 | DIAGNOSTIC IMAGING REPORT ---
KUB CLINICAL HISTORY: Nephrolithiasis. COMPARISON STUDY: CT of the abdomen and pelvis December 28, 2017 and KUB January 06, 2018. FINDINGS: Several faint right renal calculi are noted. Left renal calculus shown on CT of December 28, 2017 is not well visualized on this exam due to technique. A 9 mm distal left ureteral calculus has not significantly changed. A 4 mm calcification within the right hemipelvis is new since previous exam and suggests a distal right ureteral calculus. No additional ureteral calculi identified. There is dextroscoliosis at the thoracolumbar junction. IMPRESSION: 1. No significant change in a 9 mm distal left ureteral calculus. 2. Suspected 4 mm distal right ureteral calculus. 3. Bilateral nephrolithiasis, better depicted on previous CT. Electronically signed by: Cristian Hargrove M.D. 01/24/2018 9:10 AM Dictated Date/Time: 01/24/2018 9:06 AM
== END | disposition home or self-care (01) ==
LOC: C.RADBC 08:41
PROVIDERS: ATTEND Urology
DX: N20.2 Calculus of kidney with calculus of ureter (principal)

== ENCOUNTER → 2018-02-11 | Outpatient (CLI) | payer BC ==
[~2018-02-11] MED LIST changes: -KFL500 PO
--- NOTE | 2018-02-11 10:49 | DIAGNOSTIC IMAGING REPORT ---
CHEST 2 VIEWS ROUTINE CLINICAL HISTORY: 78 years-old Male presenting with N20.0 preoperative assessment. TECHNIQUE: PA and lateral views of the chest were obtained. COMPARISON: None. FINDINGS: Atherosclerosis of the aortic arch. Cardiac silhouette top normal in size. Lungs mildly hyperinflated. No focal opacity. No large effusion or pneumothorax. Degenerative changes of the thoracic spine. Upper abdomen normal. IMPRESSION: 1. Mild hyperinflation could suggest underlying emphysema. No focal opacity to suggest acute cardiopulmonary disease. Electronically signed by: Jonathan Moss M.D. 02/11/2018 10:47 AM Dictated Date/Time: 02/11/2018 10:46 AM
[2018-02-11 12:33] LABS: BASO % 0.4 %; BASO ABS # 0.02 K/uL (0-0.2); EOS % 2.1 %; EOS ABS # 0.11 K/uL (0-0.5); HEMATOCRIT 35.2 % (42-52); HEMOGLOBIN 11.8 g/dL (14.0-18.0); IG# 0.02 K/uL (0.00-0.02); LYMPH ABS # 1.39 K/uL (1.2-3.4); MEAN CELL VOLUME 92.6 fL (80-100); MEAN CORPUSCULAR HEMOGLOBIN 31.1 pg (25-34); MEAN CORPUSCULAR HGB CONC 33.5 g/dl (32-36); MEAN PLATELET VOLUME 10.2 fL (7.4-10.4); MONO % 7.7 %; MONO ABS # 0.41 K/uL (0.11-0.59); NEUT % 63.4 %; PLATELET COUNT 151 K/uL (130-400); RED CELL DISTRIBUTION WIDTH CV 14.2 % (11.5-14.5); WHITE BLOOD COUNT 5.35 K/uL (4.8-10.8)
[2018-02-11 12:54] LABS: BLOOD UREA NITROGEN 43 mg/dl (7-18); CALCIUM 9.2 mg/dl (8.5-10.1); CARBON DIOXIDE 25 mmol/L (21-32); CREATININE 2.04 mg/dl (0.60-1.40); GLUCOSE 130 mg/dl (70-99); POTASSIUM 4.3 mmol/L (3.5-5.1); SODIUM 140 mmol/L (136-145)
== END | disposition home or self-care (01) ==
LOC: C.RAD 10:12
PROVIDERS: ATTEND Urology
DX: N20.0 Calculus of kidney (principal); Z01.810 Encounter for preprocedural cardiovascular examination

== ENCOUNTER 2018-02-21 09:13 | Day surgery (SDC) | payer BC ==
[2018-01-27 13:24] VITALS: Ht 170.2 cm; Wt 75.0 kg
[~2018-02-21] VITALS: Ht 170.2 cm; Wt 75.0 kg
[~2018-02-21 09:13] MED LIST changes: +ATROPINE SULFATE 0.1 MG/ML 5ML SYR IV PRN; +CIPROFLOXACIN / D5W 400 MG IV SCH; +EpHEDrine SULFATE INJ 50 MG/ML AMP IV PRN; +ONDANSETRON INJ 2 MG/ML 2 ML VIAL IV PRN; +SODIUM CHLORIDE 0.9% 1000ML 1,000 ML IV SCH
[2018-02-21 10:20] VITALS: BP 100/58; PULSE 55; TEMP 36.4; O2SAT 97
[2018-02-21] MEDS ORDERED: LIDOCAINE HCL 2% 2 ML VIAL (20MG/ML) ONE (11:08)
[2018-02-21] MEDS ORDERED: DEXAMETHASONE SOD INJ 4 MG/ML VIAL ONE (11:08)
[2018-02-21] MEDS ORDERED: EpHEDrine SULFATE 50MG/5ML SYR ONE (11:08)
[2018-02-21] MEDS ORDERED: PHENYLEPHRINE 100MCG/ML 5ML SYR ONE (11:08)
[2018-02-21] MEDS ORDERED: ONDANSETRON INJ 2 MG/ML 2 ML VIAL ONE (11:08)
[2018-02-21] MEDS ORDERED: PROPOFOL IV EMULSION 10 MG/ML 20 ML VIAL ONE (11:08)
[2018-02-21] MEDS ORDERED: FENTANYL CITRATE INJ 50 MCG/1 ML 2 ML VIAL ONE (11:09)
[2018-02-21] MEDS ORDERED: Cysto-Conray II 17.2% 250ML BOTTLE ONE (11:43)
--- NOTE | 2018-02-21 13:23 | [facility] Post Operative Brief Note ---
Immediate Operative Summary Operative Date February 21, 2018. Pre-Operative Diagnosis Nephrolithiasis Post-Operative Diagnosis Nephrolithiasis Procedure(s) Performed Cystoscopy; Left Ureteroscopy, Laser Lithotripsy; Left Retrograde Pyelogram; Left Stent Insertion Surgeon Dr. Painter Wallpaper Printer Helper Surgeon(s) none Estimated Blood Loss 3mL Findings Consistent with Post-Op Diagnosis Specimens A: Left ureteral Stone for chemical analysis Drains 6x26 left stent Anesthesia Type General Complication(s) none Disposition Accompanied Pt To Recover: yes Disposition: Recovery Room / PACU
[2018-02-21] MEDS ORDERED: PHEN-876 PO (13:24)
[2018-02-21] MEDS ORDERED: OXYC-57 PO (13:24)
--- NOTE | 2018-02-21 13:25 | Discharge Instructions ---
Discharge Instructions Date of Service February 21, 2018. Visit Reason for Visit: Left Stone Discharge Discharge Diagnosis / Problem: left ureteral stone Discharge Goals Goal(s): Therapeutic intervention Activity Recommendations Activity Limitations: per Instructions/Follow-up section Exercise/Sports Limitations: rest today May Resume Sexual Activity: when tolerated Shower/Bathe: no limitations Driving or Machine Use: resume 1 day after discharge Anesthesia . Post Anesthesia Instructions: If you have had General Anesthesia or IV Sedation: * Do not drive today. * Resume driving when surgeon permits. * Do not make important decisions or sign legal documents today. * Call surgeon for: 1. Temperature elevations greater than 101 degrees F. 2. Uncontrollable pain. 3. Excessive bleeding. 4. Persistent nausea and vomiting. 5. Medication intolerance (nausea, vomiting or rash). * For nausea and vomiting use only clear liquids such as: tea, soda, bouillon until nausea subsides, then gradually increase diet as tolerated. * If you have any concerns or questions, call your surgeon's office. If physician is unavailable and it is an emergency, call 911 or go to the nearest emergency room. . Diet Recommendations Recommended Home Diet: resume previous diet Procedures Procedures Performed: Cystoscopy; Left Ureteroscopy, Laser Lithotripsy; Left Retrograde Pyelogram; Left Stent Insertion Pending Studies Studies pending at discharge: no Medical Emergencies . Who to Call and When: Medical Emergencies: If at any time you feel your situation is an emergency, please call 911 immediately. . Non-Emergent Contact Non-Emergency issues call your: Urologist Call Non-Emergent contact if: temperature is above 101.5, your pain is not controlled . . "Provider Documentation" section prepared by Steven Painter. . [place] Drug Monitoring Program Search Results: patient reviewed within database
[2018-02-21] MEDS ORDERED: OXYCODONE/ACETAMINOPHEN 5-325 TAB PO PRN (13:30)
--- NOTE | 2018-02-21 13:42 | DIAGNOSTIC IMAGING REPORT ---
INTRAOPERATIVE RADIOGRAPHS CLINICAL HISTORY: Left-sided laser lithotripsy and ureteral stent placement. Fluoroscopy time: 60 seconds. FINDINGS: 7 spot fluoroscopic views of the left abdomen from a lithotripsy procedure and ureteral stent placement procedure are correlated with abdominal CT dated 12/28/2017. The initial image shows a large calculus at the left vesicoureteral junction. There is cannulation of the left ureter and a lithotripsy device is placed. Hydronephrosis is seen following contrast injection. The final 2 images show a left ureteral stent being deployed and in appropriate position. IMPRESSION: Intraoperative images from left-sided lithotripsy and ureteral stent placement as above. Electronically signed by: Lion Heard M.D. 02/21/2018 1:40 PM Dictated Date/Time: 02/21/2018 1:39 PM
--- NOTE | 2018-02-21 13:43 | [facility] Operative Report ---
Operative Report Operative Date February 21, 2018. Pre-Operative Diagnosis Nephrolithiasis Post-Operative Diagnosis Nephrolithiasis Procedure(s) Performed Cystoscopy; Left Ureteroscopy, Laser Lithotripsy; Left Retrograde Pyelogram; Left Stent Insertion Surgeon Dr. Painter Equipment Technician Surgeon(s) none Estimated Blood Loss 3mL Findings Cystoscopic exam revealed a normal anterior urethra prostatic fossa was fixed secondary to his prior radiation. Bladder showed 1-2+ trabeculation. There were no bladder tumors seen. Ureteroscopy showed a stone in the distal left ureter. Specimens A: Left ureteral Stone for chemical analysis Drains 6x26 left stent Anesthesia Type General Complication(s) none Disposition yes Recovery Room / PACU Indications Patient's an 78-year-old white male with a left ureteral stone approximately 9 mm who has failed extracorporeal shockwave lithotripsy. He is being brought in for ureteroscopy laser lithotripsy and stent. Description of Procedure After the induction of an adequate general anesthetic and appropriate timeout patient was placed in the dorsal lithotomy position. Lower abdomen and genitalia were prepped with Hibiclens draped in a sterile fashion. Next using a 22 [place] cystoscope routine cystoscopic exam was performed the above-noted findings with 30 and 70 lenses. Next under fluoroscopic guidance a 0.03 guidewire was passed up the left ureter to position in the pelvis. Balloon dilator was then used to dilate the intramural tunnel on the left. Left ureteroscopy was then done up to the level of the stone. Using a holmium laser the stone was broken up into multiple small pieces. 1 of the larger pieces was extracted with a basket and handed off the table as a specimen. After completing the stone fragmentation the ureteroscope was removed. A 5 [place] open-ended catheter was passed over the guidewire under fluoroscopic guidance and a left retrograde was performed. The guidewire was then rethreaded through this 5 [place] catheter 5 [place] catheter was removed. The guidewire was then rethreaded through the cystoscope and then a 6 [place] by 26 cm stent was passed over the guidewire under fluoroscopic guidance to position in the renal pelvis confirmed by fluoroscopy guidewire was removed there was a good curl at the bladder level. Bladder was then drained cystoscope and sheath removed. All needle sponge and instrument counts are correct at the end of the case. Patient tolerated the procedure well and was taken recovery room in stable condition I attest to the content of the Intraoperative Record and any orders documented therein. Any exceptions are noted below.
[2018-02-21 14:10] VITALS: BP 123/74; PULSE 67; TEMP 36.2; O2SAT 97
[2018-02-21 14:40] VITALS: BP 125/72; PULSE 68; TEMP 36.1; O2SAT 97
--- NOTE | 2018-02-21 15:40 | Anesthesiology Progress Note ---
Anesthesia Post Op Note Date & Time February 21, 2018 at 15:40 Vital Signs Pain Intensity: 0 Vital Signs Past 12 Hours Date Time Temp Pulse Resp B/P (MAP) Pulse Ox O2 Delivery O2 Flow Rate FiO2 02/21/18 14:10 36.2 67 16 123/74 97 Room Air 02/21/18 14:00 36.3 68 16 120/71 97 Room Air 02/21/18 13:50 70 16 123/69 98 Oxymask 3 02/21/18 13:40 68 14 117/64 99 Oxymask 5 02/21/18 13:30 70 14 103/65 99 Oxymask 10 02/21/18 13:21 36.6 70 14 111/65 99 Oxymask 10 02/21/18 10:20 36.4 55 18 100/58 (72) 97 Room Air Notes Mental Status: alert / awake / arousable, participated in evaluation Pt Amnestic to Procedure: Yes Nausea / Vomiting: adequately controlled Pain: adequately controlled Airway Patency, RR, SpO2: stable & adequate BP & HR: stable & adequate Hydration State: stable & adequate Anesthetic Complications: no major complications apparent
== END 2018-02-21 15:15 | disposition home or self-care (01) ==
LOC: C.ACU 09:13
PROVIDERS: ATTEND Urology
DX: N20.1 Calculus of ureter (principal); M19.90 Unspecified osteoarthritis, unspecified site; E11.9 Type 2 diabetes mellitus without complications; G47.33 Obstructive sleep apnea (adult) (pediatric); C61 Malignant neoplasm of prostate; N18.9 Chronic kidney disease, unspecified; G25.81 Restless legs syndrome; Z98.84 Bariatric surgery status; Z83.3 Family history of diabetes mellitus; Z87.891 Personal history of nicotine dependence; Z80.51 Family history of malignant neoplasm of kidney; Z80.42 Family history of malignant neoplasm of prostate; Z87.442 Personal history of urinary calculi; H54.62 Unqualified visual loss, left eye, normal vision right eye

== ENCOUNTER 2018-05-26 16:46 | Inpatient (IN) | payer BC, OTHER ==
[~2018-05-26] VITALS: Ht 170.2 cm; Wt 63.9 kg
[~2018-05-26 16:46] MED LIST changes: -ATROPINE SULFATE 0.1 MG/ML 5ML SYR IV PRN; +CALC0.5C PO; -CALC1CAP36 PO; -CHOL1000 PO; -CIPROFLOXACIN / D5W 400 MG IV SCH; -CLON1TAB3 PO; -EpHEDrine SULFATE INJ 50 MG/ML AMP IV PRN; -FERR325T5 PO; +FRRS300 PO; -GLC500 PO; -HYDR-5688 PO; +INSDGIPEN SQ; +KLN1X PO; -LSX20 PO; -MULT-360 PO; +NRV/5 PO; -ONDA-170 PO; -ONDANSETRON INJ 2 MG/ML 2 ML VIAL IV PRN; -PEDICHW44 PO; +SLWMEC PO; -SODIUM CHLORIDE 0.9% 1000ML 1,000 ML IV SCH; +TUMS PO; -VALS-56 PO
--- NOTE | 2018-05-26 17:39 | DIAGNOSTIC IMAGING REPORT ---
CHEST ONE VIEW PORTABLE CLINICAL HISTORY: fever COMPARISON STUDY: 04/07/2018 FINDINGS: The heart is at the upper limits of normal in size. There is no failure. There is no focal pulmonary consolidation. There are no pleural effusions. The right internal jugular central venous catheter has been removed. There is a 14 mm right upper lung zone opacity, possibly representing a residua of the previously identified pneumonia. Short-term radiographic follow-up is recommended.[ IMPRESSION: 1. Nonspecific 14 mm right upper lung zone opacity, in an area of previously identified pneumonia. This could represent a postinflammatory residua. Close follow-up will be necessary to exclude an underlying neoplasm. Electronically signed by: Tien Cortés M.D. 05/26/2018 5:38 PM Dictated Date/Time: 05/26/2018 5:36 PM
[2018-05-26 18:03] LABS: ISTAT CREATININE 4.6 mg/dl (0.6-1.3); ISTAT IONIZED CALCIUM 1.11 mmol/l (1.12-1.32); ISTAT POTASSIUM 4.8 mEq/L (3.3-5.0)
[2018-05-26 18:04] LABS: HEMATOCRIT 26.4 % (42-52); HEMOGLOBIN 8.4 g/dL (14.0-18.0); MEAN CELL VOLUME 91.3 fL (80-100); MEAN CORPUSCULAR HEMOGLOBIN 29.1 pg (25-34); MEAN CORPUSCULAR HGB CONC 31.8 g/dl (32-36); MEAN PLATELET VOLUME 9.4 fL (7.4-10.4); PLATELET COUNT 194 K/uL (130-400); RED CELL DISTRIBUTION WIDTH CV 14.3 % (11.5-14.5); RED CELL DISTRIBUTION WIDTH SD 47.6 fL (36.4-46.3); WHITE BLOOD COUNT 6.67 K/uL (4.8-10.8)
[2018-05-26] MEDS ORDERED: AMPICILLIN SOD/SULBACTAM SOD 3 GM VIAL IV STA (18:07)
--- NOTE | 2018-05-26 18:09 | Nephrology Consultation ---
Nephrology Consultation Date of Consultation: May 26, 2018. 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 He has UTI w/ >100K of both Kleb pniae and Enterococcus, both sensitive to amp/sulbactam, on a UA c/w infection; I had seen him in clinic and drawn this b/c of continued worsening of his renal function; he has not yet had any antibiotics as he was asymptomatic (in terms of dysuria or constitutional sx but did have ongoing issues w/ leaking/dribbling /incontinence) and we were waiting for sensitivities. He had a chronic albarran removed last week; we had been monitoring PVR and it was <150 x 2 checks. However his creatinine which had been running in the low 3's for the month of May increased to 3.9 on Wednesday 05/23 and 4.4 today. In March and April, renal function was even worse, chronically in mid-high 3's. K was OK on today's labs ; mag is 1.5. He recently established with the anemia clinic and is in process of starting procrit. he has lost 22 lb since January. he follows w/ dr gamez whom he saw earlier this week. Pt states he has had no f/c, does note now chronically diminished appetite, no n /v; did have some urinary retention and suprapubic discomfort overnight last night but states this resolved with voiding today which he states he has been able to do consistently. 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 Has also had obstruction d/t kidney stones earlier this spring. He does not have dialysis access but we have been discussing ESRD: he plans to do dialysis should the need arise, leaning toward in center hemodialysis. 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 and to blood clots/ radiation cystitis >> admitted for same 12/2017, 03/2018, 04/2018 -s/p gastric bypass -HTN -h/o pancreatic CA s/p XRT -DM on po meds -GERD -osteoporosis -anemia of chronic disease recently started on procrit Family History Diabetes mellitus FHx: cancer Stroke Social History Smoking Status: Former Smoker Alcohol Use: occasionally Drug Use: none Marital Status: Housing Status: lives with family Occupation Status: retired Allergies Coded Allergies: No Known Allergies (Verified , 03/24/18) Medications Home Meds and Scripts Medications Dose Route/Sig Max Daily Dose Days Date Category Dose Instructions Tums (Calcium Carbonate) 500 Mg Chew 1,500 Mg PO BID 30 04/14/18 Rx Slow-Mag Tab (Magnesium Chloride) 64 Mg Tabcr 64 Mg PO BID 30 04/14/18 Rx Lantus Solostar (Insulin Glargine) 100 Unit/Ml Inj 10 SQ DAILY 04/06/18 Reported Lipitor (Atorvastatin Calcium) 40 Mg Tab 40 Mg PO DAILY 04/06/18 Reported Prilosec (Omeprazole) 20 Mg Cap 20 Mg PO DAILY 04/06/18 Reported Requip (Ropinirole Hydrochloride) 0.5 Mg Tab 0.5 Mg PO HS 04/06/18 Reported TAKE ONE 1 MG TABLET ALONG WITH ONE 0.5 MG TABLET TO EQUAL 1.5 MG BEDTIME DOSE Clonazepam 1 Mg Tab 1 Mg PO HS 04/06/18 Reported Gabapentin 100 Mg Cap 200 Mg PO HS 04/06/18 Reported Pioglitazone Hcl 30 Mg Tab 30 Mg PO DAILY 04/06/18 Reported Amlodipine Besylate 5 Mg Tab 5 Mg PO DAILY 04/06/18 Reported Ropinirole HCl 1 Mg Tab 1 Mg PO HS 04/06/18 Reported TAKE ONE 1 MG TABLET ALONG WITH ONE 0.5 MG TABLET TO EQUAL 1.5 MG BEDTIME DOSE Tamsulosin HCl 0.4 Mg Cap 0.4 Mg PO DAILY 04/06/18 Reported Ferrous Sulfate 325 Mg Tab 325 Mg PO DAILY 03/24/18 Reported Calcitriol 0.5 Mcg Cap 0.5 Mcg PO DAILY 03/24/18 Reported Tradjenta (Linagliptin) 5 Mg Tab 5 Mg PO DAILY 03/24/18 Reported Review of Systems Constitutional: + weight loss, + fatigue, No fever, No chills Eyes: No worsening of vision ENT: No sore throat Respiratory: No cough, No shortness of breath Cardiac: No chest pain, No edema, No palpitations Abdomen: + pain (per hpi transient suprapubic pain last evening/ overnight), + problem reported (poor appetite), No nausea, No vomiting, No diarrhea, No constipation Musculoskeletal: No joint pain, No muscle pain Male : + see HPI, + urinary frequency, + incontinence, No dysuria, No hematuria Neuro: No memory loss, No weakness, No balance problems Psych: + insomnia, No depression symptoms, No anxiety Heme: + abnormal bleeding/bruising (none recently but had gu obstruction from clot about 6 wks back) Endo: + fatigue Skin: No rash Physical Exam Date Time Temp Pulse Resp B/P (MAP) Pulse Ox O2 Delivery O2 Flow Rate FiO2 05/26/18 16:48 37.7 109 17 120/78 97 Room Air General Appearance: WD/WN, no apparent distress, + pertinent finding (lying flat on RA) Eyes: EOMI ENT: hearing grossly normal Neck: supple Respiratory/Chest: no respiratory distress, + decreased breath sounds, + crackles (bibasilar) Cardiovascular: regular rate, rhythm, + pertinent finding (trace BLE edema) Abdomen: normal bowel sounds, non tender, soft Extremities: + pedal edema, + swelling (trace) Neurologic/Psych: alert, normal mood/affect, oriented x 3 (good historian) Diagnostics Last 24 Hours Test 05/26/18 17:17 Creatine Kinase MB Ratio Assessment & Plan 78 y/o M w/ progressive CKD nearing stage 5 and recurrent LIMA in setting of past recurrent obstruction needing 3 admissions so far since 12/2017 w/ urologic intervention for same presenting today w/ worsening creatinine to 4.4 and + urine cx for Enterococcus and Klebsiella w/ ongoing dribbling sx and possible urinary retention overnight, though voiding better now. Multiple labs/ cxs/ imaging in process. -rule out recurrent hydronephrosis; consult urology -recommend renally dosed unasyn -daily bmp, cbc -obtain blood culture prior to abtx -would not place albarran unless urology recommends -renal diet -no need for emergent dialysis based on labs earlier today Appreciate consult will follow with you. Care coordinated w/ Dr. Ozuna.
[2018-05-26] MEDS ORDERED: AMPICILLIN/SULBACTAM SOD INJ 1,500 MG in SODIUM CHLORIDE 0.9% 100ML 100 ML IV SCH (18:30)
[2018-05-26 18:47] LABS: ALBUMIN 2.4 gm/dl (3.4-5.0); ALKALINE PHOSPHATASE 76 U/L (45-117); ALT/SGPT 57 U/L (12-78); AST/SGOT 41 U/L (15-37); BASO % 0.1 %; BASO ABS # 0.01 K/uL (0-0.2); BLOOD UREA NITROGEN 64 mg/dl (7-18); CALCIUM 8.7 mg/dl (8.5-10.1); CARBON DIOXIDE 23 mmol/L (21-32); CKMB < 1.0 ng/ml (0.5-3.6); EOS % 0.1 %; EOS ABS # 0.01 K/uL (0-0.5); GLUCOSE 151 mg/dl (70-99); IG# 0.02 K/uL (0.00-0.02); LYMPH % 9.7 %; LYMPH ABS # 0.65 K/uL (1.2-3.4); MONO % 9.9 %; MONO ABS # 0.66 K/uL (0.11-0.59); NEUT % 79.9 %; NEUT ABS # 5.32 K/uL (1.4-6.5); POTASSIUM 4.7 mmol/L (3.5-5.1); SODIUM 135 mmol/L (136-145); TOTAL PROTEIN 7.9 gm/dl (6.4-8.2)
[2018-05-26 18:49] LABS: CREATININE 4.59 mg/dl (0.60-1.40)
[2018-05-26] MEDS ORDERED: MAGNESIUM SULFATE 1GM / D5W 100 ML IV STA (19:49)
[2018-05-26] MEDS ORDERED: CONSULT PHARMACY STA (19:49)
[2018-05-26] MEDS ORDERED: ACETAMINOPHEN 325 MG TAB PO PRN (20:00)
[2018-05-26] MEDS ORDERED: SLWMEC PO (20:00)
[2018-05-26] MEDS ORDERED: EPGI10M INJ (20:00)
[2018-05-26] MEDS ORDERED: OMEP20TA PO (20:00)
[2018-05-26] MEDS ORDERED: CHOL1TAB2 PO (20:00)
[2018-05-26] MEDS ORDERED: SODI650T8 PO (20:00)
[2018-05-26] MEDS ORDERED: ONDANSETRON INJ 2 MG/ML 2 ML VIAL IV PRN (20:00)
[2018-05-26] MEDS ORDERED: POLYETHYLENE (MIRALAX) 17 GM PACK PO PRN (20:00)
[2018-05-26] MEDS ORDERED: GLUCOSE 10 TABS/TUBE PO PRN (20:15)
[2018-05-26] MEDS ORDERED: GLUCOSE 40% GEL 15 GM TUBE PO PRN (20:15)
[2018-05-26] MEDS ORDERED: GLUCAGON FOR INJ 1 MG VIAL SQ PRN (20:15)
[2018-05-26] MEDS ORDERED: DEXTROSE 50% 50 ML SYR IV PRN (20:15)
[2018-05-26] MEDS ORDERED: CARBOHYDRATES FOR HYPOGLYCEMIA PO PRN (20:15)
[2018-05-26] MEDS ORDERED: AMPICILLIN/SULBACTAM CONSULT ACTIVE PRN (20:30)
--- NOTE | 2018-05-26 20:37 | DIAGNOSTIC IMAGING REPORT ---
CT SCAN OF THE ABDOMEN AND PELVIS WITHOUT CONTRAST CLINICAL HISTORY: Flank pain COMPARISON STUDY: 03/24/2018 TECHNIQUE: CT scan of the abdomen and pelvis was performed from the lung bases to the proximal femurs. Images are reviewed in the axial, sagittal, and coronal planes. IV contrast was not administered for this examination. A dose lowering technique was utilized adhering to the principles of ALARA. CT DOSE: 566.89 mGy.cm FINDINGS: Lower chest: There are minimal lower lobe bronchiectatic changes. There is a small hiatal hernia. Liver: The unenhanced liver is normal in size, contour, and attenuation. There is no intrahepatic biliary ductal dilatation. Gallbladder: Cholelithiasis. Spleen: Normal in size and attenuation. Pancreas: There is pancreatic atrophy. No focal masses are visualized. Adrenal glands: There is a 3 cm left adrenal adenoma. Kidneys: There is bilateral hydronephrosis. No ureteral or bladder calculi are visualized. There are punctate nonobstructing renal calculi. Note is made of bladder wall thickening and infiltration of the perivesical fat. Bowel: There are no transition zones indicate bowel obstruction. There is colonic diverticulosis. There are no acute peridiverticular inflammatory changes. There are no findings to indicate acute diverticulitis. There are postsurgical changes of a prior gastric bypass and Clementina-en-Y anastomosis. Peritoneum: There is no intraperitoneal free air or abdominal ascites. There is small fat-containing inguinal hernias. Vasculature: The abdominal aorta is normal in course and caliber. Adenopathy: None. Pelvic viscera: The prostate is enlarged. Metallic densities visualized in the prostate possibly representing ration therapy seed implants. There is bladder wall thickening with mild infiltration the perivesical fat. Skeletal structures: There are bilateral sacroiliac insufficiency fractures. IMPRESSION: 1. No evidence of bowel obstruction. No evidence of free air. 2. No evidence of acute diverticulitis. No evidence of acute appendicitis. 3. Mild to moderate bilateral hydronephrosis and minor hydroureter. No ureteral calculi are visualized. Note is made of bladder wall thickening. 4. 3 cm left adrenal adenoma 5. Small fat-containing inguinal hernias 6. Punctate nonobstructing renal calculi 7. Prostatomegaly. Electronically signed by: Tien Cortés M.D. 05/26/2018 8:36 PM Dictated Date/Time: 05/26/2018 8:27 PM
--- NOTE | 2018-05-26 20:52 | History and Physical ---
History & Physical Date & Time of Service: May 26, 2018 at 20:09 Chief Complaint: Kidney Pain; Doc Referred Primary Care Physician: Shashi Lewis III, M.D. History of Present Illness Source: patient, spouse, clinic records, hospital records Pt is 78 y/o M with PMH CKD IV, HTN, dyslipidemia, DM II, GERD, kidney stones, prostate CA s/p radiation presented to ER from referral by Dr. Craig for UTI and LIMA on CKD. Pt with hx worsening renal functions and had UA done out patient with Dr Craig nephrology. Creatinine was low 3's in May then up to 4.4 today. Had urine culture 05/23/18: Klebsiella pneumoniae, enterococcus sensitive to unasyn. Pt with hx urinary retention. Had chronic albarran catheter removed 13 days ago. Pt states this morning started with dysuria, previously was not having any. He has ongoing urinary incontinence/dribbling. Patient reports has been urinating. Denies flank pain/back pain, abdominal pain, hematuria. 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 Patient reports has discussed dialysis in future with Dr Craig if continued worsening renal functions. Pt started following with anemia clinic - Procrit once weekly to be started. Past several months with decreased appetite. Patient reports 20 pound weight loss since January. Denies fever/chills, diaphoresis, N/V/D/C, GARRIDO, dizzines, CP, SOB, palpitations, cough, extremity edema, rashes, melena, hematochezia, epistaxis. Past Medical/Surgical History Medical Problems: (1) Abdominal pain Status: Resolved (2) CKD (chronic kidney disease), stage III Status: Chronic (3) DM type 2 (diabetes mellitus, type 2) Status: Chronic (4) GERD (gastroesophageal reflux disease) Status: Chronic (5) HTN (hypertension) Status: Chronic (6) Kidney stone Status: Resolved (7) Open fracture of left great toe Status: Resolved (8) Prostate cancer Permanent Comment: s/p radiation Status: Chronic (9) Renal colic Status: Resolved Surgical Problems: (1) H/O gastric bypass Status: Resolved (2) History of eye surgery Status: Resolved (3) History of hernia repair Status: Resolved Family History Diabetes mellitus FHx: cancer Stroke Social History Smoking Status: Former Smoker Smokeless Tobacco Use: No Alcohol Use: none Drug Use: none Marital Status: Occupational Status: retired Allergies Coded Allergies: No Known Allergies (Verified , 05/26/18) Home Medications Scheduled Amlodipine Besylate (Amlodipine Besylate), 5 MG PO DAILY Atorvastatin (Lipitor), 40 MG PO DAILY Calcitriol (Calcitriol), 0.5 MCG PO DAILY Calcium Carbonate (Tums), 1,500 MG PO BID Cholecalciferol (Vitamin D-3), 1 TAB PO DAILY Clonazepam (Clonazepam), 1 MG PO HS Epoetin Aubrey (Procrit), 10,000 UNITS INJ WK Ferrous Sulfate (Ferrous Sulfate), 325 MG PO DAILY Gabapentin (Gabapentin), 200 MG PO HS Insulin Glargine (Lantus Solostar), 2 UNITS SQ DAILY Linagliptin (Tradjenta), 5 MG PO DAILY Magnesium Chloride (Slow-Mag Tab), 2 TAB PO BID Omeprazole (Omeprazole), 1 TAB PO DAILY Pioglitazone Hcl (Pioglitazone Hcl), 30 MG PO DAILY Ropinirole HCl (Ropinirole HCl), 1 MG PO HS Ropinirole Hydrochloride (Requip), 0.5 MG PO HS Sodium Bicarbonate (Antacid) (Sodium Bicarbonate), 1 TAB PO BID Tamsulosin HCl (Tamsulosin HCl), 0.4 MG PO DAILY Review of Systems See HPI for pertinent positives & negatives. All other systems reviewed and were otherwise negative Physical Exam Vital Signs Date Time Temp Pulse Resp B/P (MAP) Pulse Ox O2 Delivery O2 Flow Rate FiO2 05/26/18 19:49 66 16 145/79 98 Room Air 05/26/18 16:48 37.7 109 17 120/78 97 Room Air General Appearance: WD/WN, no apparent distress Head: normocephalic, atraumatic Eyes: normal inspection, sclerae normal ENT: hearing grossly normal, pharynx normal, + pertinent finding (mucous membranes moist) Neck: supple, trachea midline Respiratory/Chest: lungs clear, normal breath sounds, no respiratory distress Cardiovascular: regular rate, rhythm Abdomen/GI: normal bowel sounds, non tender, soft Back: no CVA tenderness Extremities/Musculoskelatal: no calf tenderness, normal capillary refill, + pedal edema (1+ Bilateral pre-tibial) Neurologic/Psych: alert, normal mood/affect, oriented x 3 Skin: warm/dry Diagnostics Laboratory Results Results Past 24 Hours Test 05/26/18 17:39 05/26/18 17:46 05/26/18 17:50 Range/Units White Blood Count 6.67 4.8-10.8 K/uL Red Blood Count 2.89 4.7-6.1 M/uL Hemoglobin 8.4 14.0-18.0 g/dL Hematocrit 26.4 42-52 % Mean Corpuscular Volume 91.3 80-100 fL Mean Corpuscular Hemoglobin 29.1 25-34 pg Mean Corpuscular Hemoglobin Concent 31.8 32-36 g/dl Platelet Count 194 130-400 K/uL Mean Platelet Volume 9.4 7.4-10.4 fL Neutrophils (%) (Auto) 79.9 % Lymphocytes (%) (Auto) 9.7 % Monocytes (%) (Auto) 9.9 % Eosinophils (%) (Auto) 0.1 % Basophils (%) (Auto) 0.1 % Neutrophils # (Auto) 5.32 1.4-6.5 K/uL Lymphocytes # (Auto) 0.65 1.2-3.4 K/uL Monocytes # (Auto) 0.66 0.11-0.59 K/uL Eosinophils # (Auto) 0.01 0-0.5 K/uL Basophils # (Auto) 0.01 0-0.2 K/uL RDW Standard Deviation 47.6 36.4-46.3 fL RDW Coefficient of Variation 14.3 11.5-14.5 % Immature Granulocyte % (Auto) 0.3 % Immature Granulocyte # (Auto) 0.02 0.00-0.02 K/uL Prothrombin Time 11.0 9.0-12.0 SECONDS Prothromb Time International Ratio 1.0 0.9-1.1 Urine Color YELLOW Urine Appearance TURBID CLEAR Urine pH 6.5 4.5-7.5 Urine Specific Royal 1.009 1.000-1.030 Urine Protein 2+ NEG Urine Glucose (UA) NEG NEG Urine Ketones NEG NEG Urine Occult Blood 1+ NEG Urine Nitrite NEG NEG Urine Bilirubin NEG NEG Urine Urobilinogen NEG NEG Urine Leukocyte Esterase LARGE NEG Urine WBC (Auto) >30 0-5 /hpf Urine RBC (Auto) 5-10 0-4 /hpf Urine Hyaline Casts (Auto) 1-5 0-5 /lpf Urine Epithelial Cells (Auto) 0-5 0-5 /lpf Urine Bacteria (Auto) 1+ NEG Urine Yeast (Auto) NONE PRSENT Sodium Level 135 136-145 mmol/L Potassium Level 4.7 3.5-5.1 mmol/L Chloride Level 101 98-107 mmol/L Carbon Dioxide Level 23 21-32 mmol/L Anion Gap 11.0 19.0 16-25 mmol/L Blood Urea Nitrogen 64 7-18 mg/dl Creatinine 4.59 0.60-1.40 mg/dl Est Creatinine Clear Calc Drug Dose 12.0 ml/min Estimated GFR () 13.0 Estimated GFR (Non- 11.2 BUN/Creatinine Ratio 14.1 10-20 Random Glucose 151 70-99 mg/dl Calcium Level 8.7 8.5-10.1 mg/dl Magnesium Level 1.6 1.8-2.4 mg/dl Total Bilirubin 0.4 0.2-1 mg/dl Direct Bilirubin 0.2 0-0.2 mg/dl Aspartate Amino Transf (AST/SGOT) 41 15-37 U/L Alanine Aminotransferase (ALT/SGPT) 57 12-78 U/L Alkaline Phosphatase 76 45-117 U/L Total Creatine Kinase 28 39-308 U/L Creatine Kinase MB < 1.0 0.5-3.6 ng/ml Creatine Kinase MB Ratio 0-3.0 Troponin I < 0.015 0-0.045 ng/ml Total Protein 7.9 6.4-8.2 gm/dl Albumin 2.4 3.4-5.0 gm/dl Bedside Lactic Acid Venous 1.32 0.90-1.70 mmol/L Bedside Hemoglobin 8.2 14.0-18.0 g/dl Bedside Hematocrit 24 42-52 % Bedside Sodium 137 135-144 mEq/L Bedside Potassium 4.8 3.3-5.0 mEq/L Bedside Chloride 100 101-112 mEq/L Bedside Total CO2 24 24-31 mEq/l Bedside Blood Urea Nitrogen 66 7-18 mg/dl Bedside Creatinine 4.6 0.6-1.3 mg/dl Bedside Glucose (other) 152 70-99 mg/dl Bedside Ionized Calcium (Jarrett) 1.11 1.12-1.32 mmol/l Microbiology Results 05/26/18 Blood Culture, Received Pending 05/26/18 Blood Culture, Received Pending 05/26/18 Urine Culture, Received Pending Diagnostic Radiology CXR: IMPRESSION: 1. Nonspecific 14 mm right upper lung zone opacity, in an area of previously identified pneumonia. This could represent a postinflammatory residua. Close follow-up will be necessary to exclude an underlying neoplasm. CT ABD/PELVIS: Impression Assessment and Plan Pt is 78 y/o M with PMH CKD IV, HTN, dyslipidemia, DM II, GERD, kidney stones, prostate CA s/p radiation presented to ER from referral by Dr. Craig for UTI and LIMA on CKD. UTI ACUTE KIDNEY INJURY ON CKD IV HYDRONEPHROSIS Pt with hx worsening renal functions and had UA done out patient with Dr Craig nephrology. Creatinine was low 3's in May then up to 4.4 today. Had urine culture 05/23/18: Klebsiella pneumoniae, enterococcus sensitive to unasyn. No dysuria until today, chronic dribbling/incontinence. No recent urinary retention. Had albarran cath removed 13 days ago In ER: T: 37.7, P: 109 down to 66, R:17, BP: 120/78. No leukocytosis. POC lactic acid 1.3. Pt given unasyn. -CT abd/pelvis: No evidence of bowel obstruction. No evidence of free air. No evidence of acute diverticulitis. No evidence of acute appendicitis. Mild to moderate bilateral hydronephrosis and minor hydroureter. No ureteral calculi are visualized. Note is made of bladder wall thickening. 3 cm left adrenal adenoma. Small fat-containing inguinal hernias Punctate nonobstructing renal calculi. Prostatomegaly. -pending blood cultures -gentle IVF -Unasyn - renal dosed -bladder scan prn -urology consult -nephrology consult - Dr Craig saw pt in ER -cbc, prp in am -avoid nephrotoxic agents when possible HYPOMAGNESIA Ma.6 -replace, then continue pt's oral magnesium, and monitor -magnesium lab in am CHRONIC ANEMIA Probable secondary to CKD Hgb: 8.4. Has been 8.4-9. No active bleeding -Monitor CBC ABNORMAL CHEST XRAY CXR: Nonspecific 14 mm right upper lung zone opacity, in an area of previously identified pneumonia. This could represent a postinflammatory residua. Close follow-up will be necessary to exclude an underlying neoplasm. -follow up CXR DM II -Hold oral agents -Monitor BSG -Basal bolus insulin per protocol HTN Stable -Continue amlodipine DYSLIPIDEMIA -Continue atorvastatin H/O PROSTATE CA S/P RADIATION -Continue Flomax GERD -Continue PPI RLS -Continue gabapentin, Requip DVT Prophylaxis -SCDs Admit med surg Full Code as per discussion with pt Follows with Dr Lewis for routine care Pt was seen with Dr Huber. See addendum Agree with above H and P. Briefly 78m with hx of CKD stage 4 with baseline cr in low 3's,hx of prostrate cancer s/p radiation, hx urinary retention, kidney stones bilateral nephrosis s/p stent placement, was on albarran which was taken out about 13 days ago was brought in as out patient labs showed worsening renal function and uti with klebsiella and enterococcus. Denies any abdominal pain, no nausea, no sob, no hematuria. resting comfortably. p/e Ge not in distress Cvs s1 and s2 heard no murmurs Rs cta b/l no added sounds Abd benign a/p LIMA on CKD stage 4 b/l hydronephrosis today cr 4.6 on fluids' avoid nephrotoxic agents nephro and urology consult UTI klebsiella and enterococcus on Unasyn Resuscitation Status VTE Prophylaxis Will order VTE Prophylaxis: Yes Additional Copies To Shashi Lewis III, M.D.
[2018-05-26 20:53] VITALS: BP 149/96; PULSE 81; TEMP 36.9; O2SAT 97; BMI 22.1
[2018-05-26] MEDS: INSULIN ASPART 100 UNITS/ML 3 ML PEN SC SCH (21:09)
[2018-05-26] MEDS: SODIUM CHLORIDE 0.9% 1000ML 1,000 ML IV SCH (21:09)
[2018-05-26] MEDS: CLONAZEPAM 1 MG TAB PO SCH (22:28)
[2018-05-26] MEDS: MAGNESIUM CHLORIDE 64MG DELAYED REL TAB PO SCH (22:29)
[2018-05-26] MEDS: SODIUM BICARBONATE 650 MG TAB PO SCH (22:29)
[2018-05-26] MEDS: GABAPENTIN 100 MG CAP PO SCH (22:30)
[2018-05-26] MEDS: ROPINIROLE HCL 0.25 MG TAB PO SCH (22:30)
[2018-05-26] MEDS: CALCIUM CARBONATE 500 MG CHEWABLE PO SCH (22:31)
[2018-05-26] MEDS: ROPINIROLE HCL 1 MG TAB PO SCH (22:31)
[2018-05-26] MEDS: INSULIN GLARGINE SOLOSTAR 100 UNITS/ML 3 ML PEN SC SCH (22:38)
--- NOTE | 2018-05-27 00:32 | EMERGENCY ROOM VISIT NOTE ---
History Report prepared by [place]: Eddie Veloz Under the Supervision of: Dr. Emigdio Ozuna D.O. First contact with patient: 17:08 Chief Complaint: REFERRED BY DOCTOR Stated Complaint: KIDNEY PAIN; DOC REFERRED History of Present Illness The patient is a 78 year old male who presents to the Emergency Room with complaints of irregular creatinine levels noticed by his Plasterer Maintenance, Dr. Ramirez, today. The patient states that he had he creatinine level down to 2.9 last week but it is now at 4. He also reports having an UTI causing painful urination and a constant urge to urinate that started last week. He reports he did not receive any antibiotics for his UTI because of his Kidney function. The patient also states he has lost his appetite and does not drink much fluids. He reports recently losing 20 pounds since his last hospitalization. The patient has a history of kidney stones, prostate cancer, and bladder issues. Pt denies headache, change in vision, fevers, chest pain, shortness of breath, nausea, vomiting, and melena. Source of History: patient Onset: Today Position: other (Kidney Function) Timing: waxes/wanes Associated Symptoms: + urinary symptoms, No fevers, No chest pain, No SOB, No nausea, No vomiting, No diarrhea Review of Systems See HPI for pertinent positives & negatives. A total of 10 systems reviewed and were otherwise negative. Past Medical & Surgical Medical Problems: (1) Abdominal pain (2) LIMA (acute kidney injury) (3) Anemia (4) CKD (chronic kidney disease), stage III (5) Diabetes (6) DM type 2 (diabetes mellitus, type 2) (7) GERD (gastroesophageal reflux disease) (8) HTN (hypertension) (9) Kidney stone (10) Kidney stone (11) Open fracture of left great toe (12) Prostate cancer (13) Renal colic (14) Restless leg syndrome (15) UTI (urinary tract infection) Surgical Problems: (1) H/O gastric bypass (2) History of eye surgery (3) History of hernia repair Family History Diabetes mellitus FHx: cancer Stroke Social History Smoking Status: Former Smoker Alcohol Use: occasionally Drug Use: none Marital Status: Housing Status: lives with family Occupation Status: retired Current/Historical Medications Scheduled Amlodipine Besylate (Amlodipine Besylate), 5 MG PO DAILY Atorvastatin (Lipitor), 40 MG PO DAILY Calcitriol (Calcitriol), 0.5 MCG PO DAILY Calcium Carbonate (Tums), 1,500 MG PO BID Cholecalciferol (Vitamin D-3), 1 TAB PO DAILY Clonazepam (Clonazepam), 1 MG PO HS Epoetin Aubrey (Procrit), 10,000 UNITS INJ WK Ferrous Sulfate (Ferrous Sulfate), 325 MG PO DAILY Gabapentin (Gabapentin), 200 MG PO HS Insulin Glargine (Lantus Solostar), 2 UNITS SQ DAILY Linagliptin (Tradjenta), 5 MG PO DAILY Magnesium Chloride (Slow-Mag Tab), 2 TAB PO BID Omeprazole (Omeprazole), 1 TAB PO DAILY Pioglitazone Hcl (Pioglitazone Hcl), 30 MG PO DAILY Ropinirole HCl (Ropinirole HCl), 1 MG PO HS Ropinirole Hydrochloride (Requip), 0.5 MG PO HS Sodium Bicarbonate (Antacid) (Sodium Bicarbonate), 1 TAB PO BID Tamsulosin HCl (Tamsulosin HCl), 0.4 MG PO DAILY Allergies Coded Allergies: No Known Allergies (Verified , 05/26/18) Physical Exam Vital Signs Date Time Temp Pulse Resp B/P (MAP) Pulse Ox O2 Delivery O2 Flow Rate FiO2 05/26/18 16:48 37.7 109 17 120/78 97 Room Air Physical Exam GENERAL: Sitting up in bed, chronically ill appearing, non-toxic EYE EXAM: normal conjunctiva. PERRL and EOM's intact. OROPHARYNX: no exudate, no erythema, lips, buccal mucosa, and tongue normal and mucous membranes are moist NECK: supple, no nuchal rigidity, no adenopathy, non-tender LUNGS: Clear to auscultation. Normal chest wall mechanics HEART: S1 normal and S2 normal ABDOMEN: abdomen soft, non-tender, normo-active bowel sounds, no masses, no rebound or guarding. BACK: Back is symmetrical on inspection and there is no deformity, no midline tenderness, no CVA tenderness. SKIN: no rashes and no bruising UPPER EXTREMITIES: upper extremities are grossly normal. LOWER EXTREMITIES: No pitting edema. NEURO EXAM: Normal sensorium, cranial nerves II-XII grossly intact, normal speech, no gross weakness of arms, no gross weakness of legs. Medical Decision & Procedures ER Provider Diagnostic Interpretation: Radiology results as stated below per my review and the radiologist's interpretation: CHEST ONE VIEW PORTABLE CLINICAL HISTORY: fever COMPARISON STUDY: 04/07/2018 FINDINGS: The heart is at the upper limits of normal in size. There is no failure. There is no focal pulmonary consolidation. There are no pleural effusions. The right internal jugular central venous catheter has been removed. There is a 14 mm right upper lung zone opacity, possibly representing a residua of the previously identified pneumonia. Short-term radiographic follow-up is recommended.[ IMPRESSION: 1. Nonspecific 14 mm right upper lung zone opacity, in an area of previously identified pneumonia. This could represent a postinflammatory residua. Close follow-up will be necessary to exclude an underlying neoplasm. Electronically signed by: Tien Cortés M.D. 05/26/2018 5:38 PM Dictated Date/Time: 05/26/2018 5:[address] SCAN OF THE ABDOMEN AND PELVIS WITHOUT CONTRAST CLINICAL HISTORY: Flank pain COMPARISON STUDY: 03/24/2018 TECHNIQUE: CT scan of the abdomen and pelvis was performed from the lung bases to the proximal femurs. Images are reviewed in the axial, sagittal, and coronal planes. IV contrast was not administered for this examination. A dose lowering technique was utilized adhering to the principles of ALARA. CT DOSE: 566.89 mGy.cm FINDINGS: Lower chest: There are minimal lower lobe bronchiectatic changes. There is a small hiatal hernia. Liver: The unenhanced liver is normal in size, contour, and attenuation. There is no intrahepatic biliary ductal dilatation. Gallbladder: Cholelithiasis. Spleen: Normal in size and attenuation. Pancreas: There is pancreatic atrophy. No focal masses are visualized. Adrenal glands: There is a 3 cm left adrenal adenoma. Kidneys: There is bilateral hydronephrosis. No ureteral or bladder calculi are visualized. There are punctate nonobstructing renal calculi. Note is made of bladder wall thickening and infiltration of the perivesical fat. Bowel: There are no transition zones indicate bowel obstruction. There is colonic diverticulosis. There are no acute peridiverticular inflammatory changes. There are no findings to indicate acute diverticulitis. There are postsurgical changes of a prior gastric bypass and Clementina-en-Y anastomosis. Peritoneum: There is no intraperitoneal free air or abdominal ascites. There is small fat-containing inguinal hernias. Vasculature: The abdominal aorta is normal in course and caliber. Adenopathy: None. Pelvic viscera: The prostate is enlarged. Metallic densities visualized in the prostate possibly representing ration therapy seed implants. There is bladder wall thickening with mild infiltration the perivesical fat. Skeletal structures: There are bilateral sacroiliac insufficiency fractures. IMPRESSION: 1. No evidence of bowel obstruction. No evidence of free air. 2. No evidence of acute diverticulitis. No evidence of acute appendicitis. 3. Mild to moderate bilateral hydronephrosis and minor hydroureter. No ureteral calculi are visualized. Note is made of bladder wall thickening. 4. 3 cm left adrenal adenoma 5. Small fat-containing inguinal hernias 6. Punctate nonobstructing renal calculi 7. Prostatomegaly. Electronically signed by: Tien Cortés M.D. 05/26/2018 8:36 PM Dictated Date/Time: 05/26/2018 8:27 PM Laboratory Results 05/26/18 17:39 Red Blood Count 2.89, Mean Corpuscular Volume 91.3, Mean Corpuscular Hemoglobin 29.1, Mean Corpuscular Hemoglobin Concent 31.8, Mean Platelet Volume 9.4, Neutrophils (%) (Auto) 79.9, Lymphocytes (%) (Auto) 9.7, Monocytes (%) (Auto) 9.9, Eosinophils (%) (Auto) 0.1, Basophils (%) (Auto) 0.1, Neutrophils # (Auto) 5.32, Lymphocytes # (Auto) 0.65, Monocytes # (Auto) 0.66, Eosinophils # (Auto) 0.01, Basophils # (Auto) 0.01 05/26/18 17:39 Test 05/26/18 17:39 05/26/18 17:46 05/26/18 17:50 White Blood Count 6.67 K/uL (4.8-10.8) Red Blood Count 2.89 M/uL (4.7-6.1) Hemoglobin 8.4 g/dL (14.0-18.0) Hematocrit 26.4 % (42-52) Mean Corpuscular Volume 91.3 fL (80-100) Mean Corpuscular Hemoglobin 29.1 pg (25-34) Mean Corpuscular Hemoglobin Concent 31.8 g/dl (32-36) Platelet Count 194 K/uL (130-400) Mean Platelet Volume 9.4 fL (7.4-10.4) Neutrophils (%) (Auto) 79.9 % Lymphocytes (%) (Auto) 9.7 % Monocytes (%) (Auto) 9.9 % Eosinophils (%) (Auto) 0.1 % Basophils (%) (Auto) 0.1 % Neutrophils # (Auto) 5.32 K/uL (1.4-6.5) Lymphocytes # (Auto) 0.65 K/uL (1.2-3.4) Monocytes # (Auto) 0.66 K/uL (0.11-0.59) Eosinophils # (Auto) 0.01 K/uL (0-0.5) Basophils # (Auto) 0.01 K/uL (0-0.2) RDW Standard Deviation 47.6 fL (36.4-46.3) RDW Coefficient of Variation 14.3 % (11.5-14.5) Immature Granulocyte % (Auto) 0.3 % Immature Granulocyte # (Auto) 0.02 K/uL (0.00-0.02) Prothrombin Time 11.0 SECONDS (9.0-12.0) Prothromb Time International Ratio 1.0 (0.9-1.1) Urine Color YELLOW Urine Appearance TURBID (CLEAR) Urine pH 6.5 (4.5-7.5) Urine Specific [place] 1.009 (1.000-1.030) Urine Protein 2+ (NEG) Urine Glucose (UA) NEG (NEG) Urine Ketones NEG (NEG) Urine Occult Blood 1+ (NEG) Urine Nitrite NEG (NEG) Urine Bilirubin NEG (NEG) Urine Urobilinogen NEG (NEG) Urine Leukocyte Esterase LARGE (NEG) Urine WBC (Auto) >30 /hpf (0-5) Urine RBC (Auto) 5-10 /hpf (0-4) Urine Hyaline Casts (Auto) 1-5 /lpf (0-5) Urine Epithelial Cells (Auto) 0-5 /lpf (0-5) Urine Bacteria (Auto) 1+ (NEG) Urine Yeast (Auto) (NONE PRSENT) Est Creatinine Clear Calc Drug Dose 12.0 ml/min Estimated GFR () 13.0 Estimated GFR (Non- 11.2 BUN/Creatinine Ratio 14.1 (10-20) Calcium Level 8.7 mg/dl (8.5-10.1) Magnesium Level 1.6 mg/dl (1.8-2.4) Total Bilirubin 0.4 mg/dl (0.2-1) Direct Bilirubin 0.2 mg/dl (0-0.2) Aspartate Amino Transf (AST/SGOT) 41 U/L (15-37) Alanine Aminotransferase (ALT/SGPT) 57 U/L (12-78) Alkaline Phosphatase 76 U/L (45-117) Total Creatine Kinase 28 U/L (39-308) Creatine Kinase MB < 1.0 ng/ml (0.5-3.6) Creatine Kinase MB Ratio (0-3.0) Troponin I < 0.015 ng/ml (0-0.045) Total Protein 7.9 gm/dl (6.4-8.2) Albumin 2.4 gm/dl (3.4-5.0) Bedside Lactic Acid Venous 1.32 mmol/L (0.90-1.70) Bedside Hemoglobin 8.2 g/dl (14.0-18.0) Bedside Hematocrit 24 % (42-52) Bedside Sodium 137 mEq/L (135-144) Bedside Potassium 4.8 mEq/L (3.3-5.0) Bedside Chloride 100 mEq/L (101-112) Bedside Total CO2 24 mEq/l (24-31) Anion Gap 19.0 mmol/L (16-25) Bedside Blood Urea Nitrogen 66 mg/dl (7-18) Bedside Creatinine 4.6 mg/dl (0.6-1.3) Bedside Glucose (other) 152 mg/dl (70-99) Bedside Ionized Calcium (Jarrett) 1.11 mmol/l (1.12-1.32) Laboratory results per my review. Medications Administered Medications (Trade) Dose Ordered Sig/[facility] Route Start Time Stop Time Status Last Admin Dose Admin Ampicillin Sodium/ Sulbactam Sodium 1500 mg/Sodium Chloride 104 ml @ 208 mls/hr TODAY@1830 IV 05/26/18 18:30 05/26/18 18:59 DC 05/26/18 18:57 208 MLS/HR ECG Per My Interpretation Indication: other (Abnormal labs) Rate (beats per minute): 103 Rhythm: sinus tachycardia Findings: PVC, other (Normal axis) ED Course ED COURSE: Vital signs were reviewed and showed tachycardia The patients medical record was reviewed The above diagnostic studies were performed and reviewed. ED treatments and interventions as stated above. 1730: The patient was evaluated in room B5. A complete history and physical examination was performed. 1757: I spoke with Dr. Ramirez - Nephrology about the patient's case and his kidney level patterns. 1829: Ampicillin Sodium/ Sulbactam Sodium 1500mg/ Sodium Chloride 104ml @ 208 mls/hr IV 1850: I reevaluated the patient and he is stable 1855: I spoke with Amber Lafleur about the patient's case. 1948: Magnesium Sulfate 100ml / 100 mls/hr IV 2046: Upon reevaluation, the patient is resting in bed. I discussed my findings with the patient and he understands and agrees with the treatment plan. Based on the patients age, coexisting illnesses, exam and lab findings the decision to treat as an outpatient was made. The patient remained stable while under my care. The patient will be evaluated for further management. Medical Decision Differential Diagnosis includes but is not limited to dehydration, stroke, anemia, hypoglycemia, hyponatremia, hypernatremia, urinary tract infection, pneumonia, bronchitis, sepsis, gastroenteritis, additional abdominal pathology, metabolic abnormalities and infections. Patient is an 78-year-old male who presents the ER for acute kidney injury. Patient was recently admitted and discharged with a creatinine of 4. He has been follow-up with nephrology. Creatinine trended down to 2.9. This is been fairly persistent throughout May. Today he was found to have a creatinine of 4.4. He was referred in by his senior net architect. Labs show chronic anemia. BMP were otherwise unremarkable along with LFTs, bilirubin and troponin. UA did show UTI. Previous cultures reviewed showed enterococcus and Klebsiella susceptible to Unasyn. Patient was given IV Unasyn. Updated bedside. Patient was given fluids. Admitted to internal medicine for further workup. Medication Reconcilliation Current Medication List: was personally reviewed by me Blood Pressure Screening Patient's blood pressure: Elevated blood pressure Blood pressure disposition: Elevated BP felt to be situational Consults Time Called: 1754 Consulting Physician: Dr. James Ellington Plasterer Maintenance Returned Call: [phone] I reviewed the patient's case with Dr. James Ellington Plasterer Maintenance. I spoke with her about the patient's kidney level patterns. Additional Consults: Time Called: 1853 Consulted Physician: Amber Lafleur Returned Call: [phone] Additional Comments: I reviewed the patient's case with Amber Ellington PA-C. She will evaluate the patient for further management. Impression Primary Impression: LIMA (acute kidney injury) Additional Impressions: UTI (urinary tract infection) Anemia Scribe Attestation The scribe's documentation has been prepared under my direction and personally reviewed by me in its entirety. I confirm that the note above accurately reflects all work, treatment, procedures, and medical decision making performed by me. Departure Information Dispostion Home / Self-Care Referrals Shashi Lewis III, M.D. (PCP) Forms HOME CARE DOCUMENTATION FORM, IMPORTANT VISIT INFORMATION, WORK / SCHOOL INSTRUCTIONS Patient Instructions My [facility] Problem Qualifiers Additional Impressions: UTI (urinary tract infection) Urinary tract infection type: acute cystitis Hematuria presence: without hematuria Qualified Codes: N30.00 - Acute cystitis without hematuria Anemia Anemia type: unspecified type Qualified Codes: D64.9 - Anemia, unspecified
[2018-05-27 06:57] LABS: HEMATOCRIT 24.7 % (42-52); HEMOGLOBIN 7.6 g/dL (14.0-18.0); MEAN CELL VOLUME 91.5 fL (80-100); MEAN CORPUSCULAR HEMOGLOBIN 28.1 pg (25-34); MEAN CORPUSCULAR HGB CONC 30.8 g/dl (32-36); MEAN PLATELET VOLUME 9.4 fL (7.4-10.4); PLATELET COUNT 169 K/uL (130-400); RED CELL DISTRIBUTION WIDTH CV 14.1 % (11.5-14.5); RED CELL DISTRIBUTION WIDTH SD 47.3 fL (36.4-46.3); WHITE BLOOD COUNT 6.23 K/uL (4.8-10.8)
[2018-05-27 07:19] VITALS: BP 162/85; PULSE 68; TEMP 36.9; O2SAT 98
[2018-05-27 07:31] LABS: CALCIUM 8.6 mg/dl (8.5-10.1); CREATININE 4.01 mg/dl (0.60-1.40); PHOSPHORUS 4.3 mg/dl (2.5-4.9); POTASSIUM 4.5 mmol/L (3.5-5.1)
[2018-05-27] MEDS: SODIUM CHLORIDE 0.9% 1000ML 1,000 ML IV SCH ×2 (07:52→23:36)
[2018-05-27] MEDS: CALCIUM CARBONATE 500 MG CHEWABLE PO SCH ×2 (07:54→21:03)
[2018-05-27] MEDS: SODIUM BICARBONATE 650 MG TAB PO SCH ×2 (07:54→21:04)
[2018-05-27] MEDS: MAGNESIUM CHLORIDE 64MG DELAYED REL TAB PO SCH ×2 (07:54→21:04)
[2018-05-27] MEDS: CHOLECALCIFEROL 1000 INTER.UNIT TAB PO SCH (07:55)
[2018-05-27] MEDS: AMLODIPINE BESYLATE 5 MG TAB PO SCH (07:55)
[2018-05-27] MEDS: CALCITRIOL 0.5 MCG CAP PO SCH (07:55)
[2018-05-27] MEDS: TAMSULOSIN HCL 0.4 MG CAP PO SCH (07:57)
[2018-05-27] MEDS: ATORVASTATIN 40 MG TAB PO SCH (07:57)
[2018-05-27] MEDS: FERROUS SULFATE 325 MG TAB PO SCH (07:57)
[2018-05-27] MEDS: INSULIN ASPART 100 UNITS/ML 3 ML PEN SC SCH ×4 (08:32→21:00)
[2018-05-27] MEDS: INSULIN GLARGINE SOLOSTAR 100 UNITS/ML 3 ML PEN SC SCH ×2 (08:33→21:05)
[2018-05-27] MEDS: PANTOprazole SOD 40 MG TAB PO SCH (08:33)
[2018-05-27] MEDS ORDERED: PANTOprazole SOD 40 MG TAB PO SCH (09:00)
[2018-05-27 15:56] VITALS: BP 120/73; PULSE 84; TEMP 36.8; O2SAT 96
[2018-05-27 16:00] VITALS: O2SAT 96
[2018-05-27] MEDS: AMPICILLIN/SULBACTAM SOD INJ 1,500 MG in SODIUM CHLORIDE 0.9% 100ML 100 ML IV SCH (18:03)
--- NOTE | 2018-05-27 18:10 | Nephrology Progress Note ---
Nephrology Progress Note Date of Service: May 27, 2018. Subjective seen on rounds this am at 0720 > no c/o except asx hypertension; no change in dribbling/voiding; note this evening that urine cx here contaminated; no flank pain or F; ongoing p0oor appetite Objective Date Time Temp Pulse Resp B/P (MAP) Pulse Ox O2 Delivery O2 Flow Rate FiO2 05/27/18 00:00 Room Air 05/26/18 20:53 36.9 81 18 149/96 97 Room Air 05/26/18 19:49 66 16 145/79 98 Room Air 05/26/18 16:48 37.7 109 17 120/78 97 Room Air Physical Exam: General Appearance: WD/WN, no apparent distress, + pertinent finding (lying flat on RA) Eyes: EOMI ENT: hearing grossly normal Neck: supple Respiratory/Chest: no respiratory distress, + decreased breath sounds Cardiovascular: regular rate, rhythm, + pertinent finding (trace BLE edema) Abdomen: normal bowel sounds, non tender, soft Extremities: + pedal edema, + swelling (trace) Neurologic/Psych: alert, normal mood/affect, oriented x 3 (good historian) Current Inpatient Medications Medications (Trade) Dose Ordered Sig/Rose Route Start Time Stop Time Status Last Admin Dose Admin Acetaminophen (Tylenol Tab) 650 mg Q4H PRN PO 05/26/18 20:00 06/25/18 19:59 Polyethylene (Miralax Powder Packet) 17 gm DAILY PRN PO 05/26/18 20:00 06/25/18 19:59 Ondansetron HCl (Zofran Inj) 4 mg Q6H PRN IV 05/26/18 20:00 06/25/18 19:59 Sodium Chloride 1,000 ml @ 100 mls/hr Q10H IV 05/26/18 21:30 06/25/18 21:29 05/26/18 21:09 100 MLS/HR Amlodipine Besylate (Norvasc Tab) 5 mg DAILY PO 05/27/18 09:00 06/26/18 08:59 Atorvastatin Calcium (Lipitor Tab) 40 mg DAILY PO 05/27/18 09:00 06/26/18 08:59 Calcitriol (Rocaltrol Cap) 0.5 mcg DAILY PO 05/27/18 09:00 06/26/18 08:59 Calcium Carbonate (Tums Chew Tab) 1,500 mg BID PO 05/26/18 21:00 06/25/18 20:59 05/26/18 22:31 1,500 MG Cholecalciferol (Vitamin D Tab) 1,000 inter.unit DAILY PO 05/27/18 09:00 06/26/18 08:59 Clonazepam (Klonopin Tab) 1 mg HS PO 05/26/18 21:00 06/25/18 20:59 05/26/18 22:28 1 MG Ferrous Sulfate (Feosol Tab) 325 mg DAILY PO 05/27/18 09:00 06/26/18 08:59 Gabapentin (Neurontin Cap) 200 mg HS PO 05/26/18 21:00 06/25/18 20:59 05/26/18 22:30 200 MG Magnesium Chloride (Slow-Mag Tab) 128 mg BID PO 05/26/18 21:00 06/25/18 20:59 05/26/18 22:29 128 MG Ropinirole HCl (Requip Tab) 1 mg HS PO 05/26/18 21:00 06/25/18 20:59 05/26/18 22:31 1 MG Ropinirole HCl (Requip Tab) 0.5 mg HS PO 05/26/18 21:00 06/25/18 20:59 05/26/18 22:30 0.5 MG Sodium Bicarbonate (Sodium Bicarbonate Tab) 650 mg BID PO 05/26/18 21:00 06/25/18 20:59 05/26/18 22:29 650 MG Tamsulosin HCl (Flomax Cap) 0.4 mg DAILY PO 05/27/18 09:00 06/26/18 08:59 Pantoprazole Sodium (Protonix Tab) 1 mg DAILY PO 05/27/18 09:00 06/26/18 08:59 Insulin Glargine (Lantus Solostar Pen) 5 units if BSG >180 3 units... Q12 SC 05/26/18 21:30 06/25/18 21:29 05/26/18 22:38 3 UNITS Insulin Aspart (novoLOG ASPART) SLIDING SCALE If C... ACHS SC 05/26/18 21:30 06/25/18 21:29 Glucose (Glucose 40% Gel) 15-30 GRAMS 15 GRAMS... UD PRN PO 05/26/18 20:15 06/25/18 20:14 Glucose (Glucose Chew Tab) 4-8 Tablets 4 Tabl... UD PRN PO 05/26/18 20:15 06/25/18 20:14 Dextrose (Dextrose 50% 50ML Syringe) 25-50ML 25ML FOR ... UD PRN IV 05/26/18 20:15 06/25/18 20:14 Glucagon (Glucagon Inj) 1 mg UD PRN SQ 05/26/18 20:15 06/25/18 20:14 Carbohydrates (Carbohydrates For Hypoglycemia) 15-30 GRAMS 15 grams if BSG 54-69... UD PRN PO 05/26/18 20:15 06/25/18 20:14 Ampicillin Sodium/ Sulbactam Sodium (Consult) 1 ea UD PRN N/A 05/26/18 20:30 06/25/18 20:29 Ampicillin Sodium/ Sulbactam Sodium 1500 mg/Sodium Chloride 104 ml @ 200 mls/hr Q24H IV 05/27/18 18:00 06/06/18 17:59 Last 24 Hours Test 05/26/18 17:39 05/26/18 17:46 05/26/18 17:50 05/26/18 21:05 White Blood Count 6.67 K/uL Red Blood Count 2.89 M/uL Hemoglobin 8.4 g/dL Hematocrit 26.4 % Mean Corpuscular Volume 91.3 fL Mean Corpuscular Hemoglobin 29.1 pg Mean Corpuscular Hemoglobin Concent 31.8 g/dl Platelet Count 194 K/uL Mean Platelet Volume 9.4 fL Neutrophils (%) (Auto) 79.9 % Lymphocytes (%) (Auto) 9.7 % Monocytes (%) (Auto) 9.9 % Eosinophils (%) (Auto) 0.1 % Basophils (%) (Auto) 0.1 % Neutrophils # (Auto) 5.32 K/uL Lymphocytes # (Auto) 0.65 K/uL Monocytes # (Auto) 0.66 K/uL Eosinophils # (Auto) 0.01 K/uL Basophils # (Auto) 0.01 K/uL RDW Standard Deviation 47.6 fL RDW Coefficient of Variation 14.3 % Immature Granulocyte % (Auto) 0.3 % Immature Granulocyte # (Auto) 0.02 K/uL Prothrombin Time 11.0 SECONDS Prothromb Time International Ratio 1.0 Urine Color YELLOW Urine Appearance TURBID Urine pH 6.5 Urine Specific [place] 1.009 Urine Protein 2+ Urine Glucose (UA) NEG Urine Ketones NEG Urine Occult Blood 1+ Urine Nitrite NEG Urine Bilirubin NEG Urine Urobilinogen NEG Urine Leukocyte Esterase LARGE Urine WBC (Auto) >30 /hpf Urine RBC (Auto) 5-10 /hpf Urine Hyaline Casts (Auto) 1-5 /lpf Urine Epithelial Cells (Auto) 0-5 /lpf Urine Bacteria (Auto) 1+ Urine Yeast (Auto) Sodium Level 135 mmol/L Potassium Level 4.7 mmol/L Chloride Level 101 mmol/L Carbon Dioxide Level 23 mmol/L Anion Gap 11.0 mmol/L 19.0 mmol/L Blood Urea Nitrogen 64 mg/dl Creatinine 4.59 mg/dl Est Creatinine Clear Calc Drug Dose 12.0 ml/min Estimated GFR () 13.0 Estimated GFR (Non- 11.2 BUN/Creatinine Ratio 14.1 Random Glucose 151 mg/dl Calcium Level 8.7 mg/dl Magnesium Level 1.6 mg/dl Total Bilirubin 0.4 mg/dl Direct Bilirubin 0.2 mg/dl Aspartate Amino Transf (AST/SGOT) 41 U/L Alanine Aminotransferase (ALT/SGPT) 57 U/L Alkaline Phosphatase 76 U/L Total Creatine Kinase 28 U/L Creatine Kinase MB < 1.0 ng/ml Creatine Kinase MB Ratio Troponin I < 0.015 ng/ml Total Protein 7.9 gm/dl Albumin 2.4 gm/dl Bedside Lactic Acid Venous 1.32 mmol/L Bedside Hemoglobin 8.2 g/dl Bedside Hematocrit 24 % Bedside Sodium 137 mEq/L Bedside Potassium 4.8 mEq/L Bedside Chloride 100 mEq/L Bedside Total CO2 24 mEq/l Bedside Blood Urea Nitrogen 66 mg/dl Bedside Creatinine 4.6 mg/dl Bedside Glucose (other) 152 mg/dl Bedside Ionized Calcium (Jarrett) 1.11 mmol/l Bedside Glucose 152 mg/dl Test 05/27/18 04:44 Date/Time Source Procedure Growth Status 05/26/18 18:07 Blood Blood Culture Pending Received 05/26/18 17:39 Blood Blood Culture Pending Received 05/26/18 17:39 Urine , Clean Catch Urine Culture Pending Received Other Studies: CT abd/pelvis 1. No evidence of bowel obstruction. No evidence of free air. 2. No evidence of acute diverticulitis. No evidence of acute appendicitis. 3. Mild to moderate bilateral hydronephrosis and minor hydroureter. No ureteral calculi are visualized. Note is made of bladder wall thickening. 4. 3 cm left adrenal adenoma 5. Small fat-containing inguinal hernias 6. Punctate nonobstructing renal calculi 7. Prostatomegaly. Assessment & Plan 78 y/o M w/ progressive CKD nearing stage 5 and recurrent LIMA in setting of past recurrent obstruction needing 3 admissions so far since 12/2017 w/ urologic intervention for same presenting today w/ worsening creatinine to 4.4 and + urine cx for Enterococcus and Klebsiella as outpt (not treated prior to admission) w/ ongoing dribbling sx and possible urinary retention at times 48 hrs prior to admission, though voiding better now. goal is to reverse anything that we can reverse here in terms of improving his renal function; pt understands he may not -ongoing hydronephrosis; f/u urology recs -recommend renally dosed unasyn though may scale back quickly depending on clinical status -lower IVF rate to 50 ml/hr -daily bmp, cbc -f/u pending blood culture -would not place albarran unless urology recommends -STRICT I/O -renal diet -no need for emergent dialysis -iron screen 10% as outpt on 05/13 and low index of suspicion for bacteremia > will load iron and give epo same time given dropping hgb (dilutional + CKD) Appreciate consult will follow with you. Care coordinated w/ Dr Rao.
[2018-05-27 18:17] VITALS: Ht 170.2 cm; Wt 63.9 kg
[2018-05-27] MEDS ORDERED: IRON SUCROSE INJ 200 MG in SODIUM CHLORIDE 0.9% 100ML 100 ML IV SCH (19:00)
[2018-05-27] MEDS ORDERED: EPOETIN ALFA 20,000 UNITS/ML VIAL SQ ONE (20:00)
[2018-05-27] MEDS: GABAPENTIN 100 MG CAP PO SCH (21:03)
[2018-05-27] MEDS: ROPINIROLE HCL 0.25 MG TAB PO SCH (21:03)
[2018-05-27] MEDS: ROPINIROLE HCL 1 MG TAB PO SCH (21:04)
[2018-05-27] MEDS: CLONAZEPAM 1 MG TAB PO SCH (21:06)
[2018-05-27 21:13] VITALS: BP 124/77; PULSE 75; TEMP 36.8; O2SAT 96
[2018-05-27 21:43] VITALS: BP 124/74; PULSE 78; TEMP 36.9; O2SAT 96
--- NOTE | 2018-05-27 23:47 | Progress Note ---
Medicine Progress Note Date & Time of Visit: May 27, 2018 at 23:47. Subjective seen resting in bed, comfortable watching tv denies dyspnea, chest pain, nausea, abdominal pain reports dribbling, urinary incontinence no other symptoms Objective Last 8 Hrs Date Time Temp Pulse Resp B/P (MAP) Pulse Ox O2 Delivery O2 Flow Rate FiO2 05/27/18 21:43 36.9 78 18 124/74 (91) 96 Room Air 05/27/18 21:13 36.8 75 18 124/77 (93) 96 Room Air 05/27/18 15:56 36.8 84 18 120/73 (89) 96 Room Air Physical Exam: General- oriented x 3 not in distress, speaks in sentences Head- atraumatic Eyes- PERRL, EOMI, anicteric ENT- oropharynx clear Neck- supple, no JVD, no adenopathy, no thyromegaly Lungs- clear to auscultation b/l Heart- regular rhythm; no murmur, normal rate Abdomen- normal bowel sounds, soft, nontender, no masses or hepatosplenomegaly Extremities- no pretibial edema, no calf tenderness; peripheral pulses intact Neuro- alert, oriented x 3; no gross focal deficits Skin- warm & dry Laboratory Results: Last 24 Hours Test 05/27/18 06:44 05/27/18 07:27 05/27/18 11:30 05/27/18 16:54 White Blood Count 6.23 K/uL Red Blood Count 2.70 M/uL Hemoglobin 7.6 g/dL Hematocrit 24.7 % Mean Corpuscular Volume 91.5 fL Mean Corpuscular Hemoglobin 28.1 pg Mean Corpuscular Hemoglobin Concent 30.8 g/dl RDW Standard Deviation 47.3 fL RDW Coefficient of Variation 14.1 % Platelet Count 169 K/uL Mean Platelet Volume 9.4 fL Sodium Level 141 mmol/L Potassium Level 4.5 mmol/L Chloride Level 107 mmol/L Carbon Dioxide Level 23 mmol/L Anion Gap 11.0 mmol/L Blood Urea Nitrogen 64 mg/dl Creatinine 4.01 mg/dl Est Creatinine Clear Calc Drug Dose 13.3 ml/min Estimated GFR () 15.3 Estimated GFR (Non- 13.2 BUN/Creatinine Ratio 15.9 Random Glucose 125 mg/dl Calcium Level 8.6 mg/dl Phosphorus Level 4.3 mg/dl Magnesium Level 2.2 mg/dl Bedside Glucose 131 mg/dl 138 mg/dl 116 mg/dl Test 05/27/18 20:14 Bedside Glucose 139 mg/dl Assessment & Plan Pt is 78 y/o M with PMH CKD IV, HTN, dyslipidemia, DM II, GERD, kidney stones, prostate CA s/p radiation presented to ER from referral by Dr. Craig for UTI and LIMA on CKD. UTI ACUTE KIDNEY INJURY ON CKD IV HYDRONEPHROSIS Pt with hx worsening renal functions and had UA done out patient with Dr Craig nephrology. Creatinine was low 3's in May then up to 4.4 today. Had urine culture 05/23/18: Klebsiella pneumoniae, enterococcus sensitive to unasyn. No dysuria until today, chronic dribbling/incontinence. No recent urinary retention. Had albarran cath removed 13 days ago In ER: T: 37.7, P: 109 down to 66, R:17, BP: 120/78. No leukocytosis. POC lactic acid 1.3. Pt given unasyn. -CT abd/pelvis: No evidence of bowel obstruction. No evidence of free air. No evidence of acute diverticulitis. No evidence of acute appendicitis. Mild to moderate bilateral hydronephrosis and minor hydroureter. No ureteral calculi are visualized. Note is made of bladder wall thickening. 3 cm left adrenal adenoma. Small fat-containing inguinal hernias Punctate nonobstructing renal calculi. Prostatomegaly. -pending blood cultures -Unasyn - renal dosed - crea improving IV fluids decreased -bladder scan prn -urology consult -nephrology consult - Dr Craig CHRONIC ANEMIA Probable secondary to CKD Hgb: 8.4. Has been 8.4-9. No active bleeding - Hg 7.6 monitor ABNORMAL CHEST XRAY CXR: Nonspecific 14 mm right upper lung zone opacity, in an area of previously identified pneumonia. This could represent a postinflammatory residua. Close follow-up will be necessary to exclude an underlying neoplasm. DM II -Hold oral agents -Monitor BSG -Basal bolus insulin per protocol HTN Stable -Continue amlodipine DYSLIPIDEMIA -Continue atorvastatin H/O PROSTATE CA S/P RADIATION -Continue Flomax GERD -Continue PPI RLS -Continue gabapentin, Requip DVT Prophylaxis -SCDs Current Inpatient Medications: Current Inpatient Medications Medications (Trade) Dose Ordered Sig/Rose Route Start Time Stop Time Status Last Admin Dose Admin Acetaminophen (Tylenol Tab) 650 mg Q4H PRN PO 05/26/18 20:00 06/25/18 19:59 Polyethylene (Miralax Powder Packet) 17 gm DAILY PRN PO 05/26/18 20:00 06/25/18 19:59 Ondansetron HCl (Zofran Inj) 4 mg Q6H PRN IV 05/26/18 20:00 06/25/18 19:59 Sodium Chloride 1,000 ml @ 50 mls/hr Q20H IV 05/26/18 21:30 06/25/18 21:29 05/27/18 23:36 50 MLS/HR Amlodipine Besylate (Norvasc Tab) 5 mg DAILY PO 05/27/18 09:00 06/26/18 08:59 05/27/18 07:55 5 MG Atorvastatin Calcium (Lipitor Tab) 40 mg DAILY PO 05/27/18 09:00 06/26/18 08:59 05/27/18 07:57 40 MG Calcitriol (Rocaltrol Cap) 0.5 mcg DAILY PO 05/27/18 09:00 06/26/18 08:59 05/27/18 07:55 0.5 MCG Calcium Carbonate (Tums Chew Tab) 1,500 mg BID PO 05/26/18 21:00 06/25/18 20:59 05/27/18 21:03 1,500 MG Cholecalciferol (Vitamin D Tab) 1,000 inter.unit DAILY PO 05/27/18 09:00 06/26/18 08:59 05/27/18 07:55 1,000 INTER.UNIT Clonazepam (Klonopin Tab) 1 mg HS PO 05/26/18 21:00 06/25/18 20:59 05/27/18 21:06 1 MG Ferrous Sulfate (Feosol Tab) 325 mg DAILY PO 05/27/18 09:00 06/26/18 08:59 05/27/18 07:57 325 MG Gabapentin (Neurontin Cap) 200 mg HS PO 05/26/18 21:00 06/25/18 20:59 05/27/18 21:03 200 MG Magnesium Chloride (Slow-Mag Tab) 128 mg BID PO 05/26/18 21:00 06/25/18 20:59 05/27/18 21:04 128 MG Ropinirole HCl (Requip Tab) 1 mg HS PO 05/26/18 21:00 06/25/18 20:59 05/27/18 21:04 1 MG Ropinirole HCl (Requip Tab) 0.5 mg HS PO 05/26/18 21:00 06/25/18 20:59 05/27/18 21:03 0.5 MG Sodium Bicarbonate (Sodium Bicarbonate Tab) 650 mg BID PO 05/26/18 21:00 06/25/18 20:59 05/27/18 21:04 650 MG Tamsulosin HCl (Flomax Cap) 0.4 mg DAILY PO 05/27/18 09:00 06/26/18 08:59 05/27/18 07:57 0.4 MG Insulin Glargine (Lantus Solostar Pen) 5 units if BSG >180 3 units... Q12 SC 05/26/18 21:30 06/25/18 21:29 05/27/18 21:05 3 UNITS Insulin Aspart (novoLOG ASPART) SLIDING SCALE If C... ACHS SC 05/26/18 21:30 06/25/18 21:29 05/27/18 08:32 2 UNITS Glucose (Glucose 40% Gel) 15-30 GRAMS 15 GRAMS... UD PRN PO 05/26/18 20:15 06/25/18 20:14 Glucose (Glucose Chew Tab) 4-8 Tablets 4 Tabl... UD PRN PO 05/26/18 20:15 06/25/18 20:14 Dextrose (Dextrose 50% 50ML Syringe) 25-50ML 25ML FOR ... UD PRN IV 05/26/18 20:15 06/25/18 20:14 Glucagon (Glucagon Inj) 1 mg UD PRN SQ 05/26/18 20:15 06/25/18 20:14 Carbohydrates (Carbohydrates For Hypoglycemia) 15-30 GRAMS 15 grams if BSG 54-69... UD PRN PO 05/26/18 20:15 06/25/18 20:14 Ampicillin Sodium/ Sulbactam Sodium (Consult) 1 ea UD PRN N/A 05/26/18 20:30 06/25/18 20:29 Ampicillin Sodium/ Sulbactam Sodium 1500 mg/Sodium Chloride 104 ml @ 200 mls/hr Q24H IV 05/27/18 18:00 06/06/18 17:59 05/27/18 18:03 200 MLS/HR Pantoprazole Sodium (Protonix Tab) 40 mg DAILY PO 05/27/18 09:00 06/26/18 08:59 05/27/18 08:33 40 MG
[2018-05-28 00:43] VITALS: BP 108/73; PULSE 88; TEMP 36.6; O2SAT 97
[2018-05-28 07:45] VITALS: BP 122/77; PULSE 75; TEMP 36.4; O2SAT 99
[2018-05-28] MEDS: MAGNESIUM CHLORIDE 64MG DELAYED REL TAB PO SCH ×2 (08:29→20:28)
[2018-05-28] MEDS: CALCIUM CARBONATE 500 MG CHEWABLE PO SCH ×2 (08:30→20:29)
[2018-05-28] MEDS: SODIUM BICARBONATE 650 MG TAB PO SCH ×2 (08:30→20:28)
[2018-05-28] MEDS: CALCITRIOL 0.5 MCG CAP PO SCH (08:31)
[2018-05-28] MEDS: PANTOprazole SOD 40 MG TAB PO SCH (08:31)
[2018-05-28] MEDS: ATORVASTATIN 40 MG TAB PO SCH (08:31)
[2018-05-28] MEDS: AMLODIPINE BESYLATE 5 MG TAB PO SCH (08:31)
[2018-05-28] MEDS: CHOLECALCIFEROL 1000 INTER.UNIT TAB PO SCH (08:31)
[2018-05-28] MEDS: INSULIN GLARGINE SOLOSTAR 100 UNITS/ML 3 ML PEN SC SCH ×2 (08:32→20:33)
[2018-05-28] MEDS: TAMSULOSIN HCL 0.4 MG CAP PO SCH (08:32)
[2018-05-28] MEDS: FERROUS SULFATE 325 MG TAB PO SCH (08:32)
[2018-05-28] MEDS: INSULIN ASPART 100 UNITS/ML 3 ML PEN SC SCH ×4 (08:34→20:33)
--- NOTE | 2018-05-28 09:31 | Progress Note ---
Medicine Progress Note Date & Time of Visit: May 28, 2018 at 09:21. Subjective seen resting in bed, comfortable denies symptoms no abdominal pain still has some dribbling otherwise denies other complaints Objective Last 8 Hrs Date Time Temp Pulse Resp B/P (MAP) Pulse Ox O2 Delivery O2 Flow Rate FiO2 05/28/18 07:45 36.4 75 18 122/77 (92) 99 Physical Exam: General- oriented x 3 not in distress, speaks in sentences Eyes- anicteric Neck- supple, no JVD Lungs- clear breath sounds bilaterally no rales/wheezes Heart- regular rhythm; no murmur, normal rate Abdomen- normal bowel sounds, soft, nontender Extremities- no pretibial edema, no calf tenderness Neuro- alert, oriented x 3; no gross focal deficits Skin- warm & dry Laboratory Results: Last 24 Hours Test 05/27/18 11:30 05/27/18 16:54 05/27/18 20:14 05/28/18 07:28 Bedside Glucose 138 mg/dl 116 mg/dl 139 mg/dl 80 mg/dl Test 05/28/18 08:45 Assessment & Plan Pt is 78 y/o M with PMH CKD IV, HTN, dyslipidemia, DM II, GERD, kidney stones, prostate CA s/p radiation presented to ER from referral by Dr. Craig for UTI and LIMA on CKD. ACUTE KIDNEY INJURY ON CKD IV UTI, ENTEROCOCCUS AND KLEBSIELLA HYDRONEPHROSIS Pt with hx worsening renal functions and had UA done out patient with Dr Craig nephrology. Creatinine was low 3's in May then up to 4.4 today. Had urine culture 05/23/18: Klebsiella pneumoniae, enterococcus sensitive to unasyn. No dysuria until today, chronic dribbling/incontinence. No recent urinary retention. Had albarran cath removed 13 days ago In ER: T: 37.7, P: 109 down to 66, R:17, BP: 120/78. No leukocytosis. POC lactic acid 1.3. Pt given unasyn. -CT abd/pelvis: No evidence of bowel obstruction. No evidence of free air. No evidence of acute diverticulitis. No evidence of acute appendicitis. Mild to moderate bilateral hydronephrosis and minor hydroureter. No ureteral calculi are visualized. Note is made of bladder wall thickening. 3 cm left adrenal adenoma. Small fat-containing inguinal hernias Punctate nonobstructing renal calculi. Prostatomegaly. -blood cultures: negative repeat urine culture as inpatient: negative -Unasyn - renal dosed based on outpatient urine culture, anticipate transition to Ampicillin 500mg TID and Cipro x 5 days to complete 1 week therapy repeat urine culture as outpatient - crea pending IV fluids decreased - awaiting Urology SVC recommendations CHRONIC ANEMIA Probable secondary to CKD Hgb: 8.4. Has been 8.4-9. No active bleeding - Hg 7.6 - given IV Iron and EPO ABNORMAL CHEST XRAY CXR: Nonspecific 14 mm right upper lung zone opacity, in an area of previously identified pneumonia. This could represent a postinflammatory residual. Close follow-up will be necessary to exclude an underlying neoplasm. DM II -Hold oral agents -Monitor BSG -Basal bolus insulin per protocol HTN Stable -Continue amlodipine DYSLIPIDEMIA -Continue atorvastatin H/O PROSTATE CA S/P RADIATION -Continue Flomax GERD -Continue PPI RLS -Continue gabapentin, Requip DVT Prophylaxis -SCDs Disposition anticipate d/c home when cleared by Nephro, Urology Current Inpatient Medications: Current Inpatient Medications Medications (Trade) Dose Ordered Sig/Rose Route Start Time Stop Time Status Last Admin Dose Admin Acetaminophen (Tylenol Tab) 650 mg Q4H PRN PO 05/26/18 20:00 06/25/18 19:59 Polyethylene (Miralax Powder Packet) 17 gm DAILY PRN PO 05/26/18 20:00 06/25/18 19:59 Ondansetron HCl (Zofran Inj) 4 mg Q6H PRN IV 05/26/18 20:00 06/25/18 19:59 Sodium Chloride 1,000 ml @ 50 mls/hr Q20H IV 05/26/18 21:30 06/25/18 21:29 05/27/18 23:36 50 MLS/HR Amlodipine Besylate (Norvasc Tab) 5 mg DAILY PO 05/27/18 09:00 06/26/18 08:59 05/28/18 08:31 5 MG Atorvastatin Calcium (Lipitor Tab) 40 mg DAILY PO 05/27/18 09:00 06/26/18 08:59 05/28/18 08:31 40 MG Calcitriol (Rocaltrol Cap) 0.5 mcg DAILY PO 05/27/18 09:00 06/26/18 08:59 05/28/18 08:31 0.5 MCG Calcium Carbonate (Tums Chew Tab) 1,500 mg BID PO 05/26/18 21:00 06/25/18 20:59 05/28/18 08:30 1,500 MG Cholecalciferol (Vitamin D Tab) 1,000 inter.unit DAILY PO 05/27/18 09:00 06/26/18 08:59 05/28/18 08:31 1,000 INTER.UNIT Clonazepam (Klonopin Tab) 1 mg HS PO 05/26/18 21:00 06/25/18 20:59 05/27/18 21:06 1 MG Ferrous Sulfate (Feosol Tab) 325 mg DAILY PO 05/27/18 09:00 06/26/18 08:59 05/28/18 08:32 325 MG Gabapentin (Neurontin Cap) 200 mg HS PO 05/26/18 21:00 06/25/18 20:59 05/27/18 21:03 200 MG Magnesium Chloride (Slow-Mag Tab) 128 mg BID PO 05/26/18 21:00 06/25/18 20:59 05/28/18 08:29 128 MG Ropinirole HCl (Requip Tab) 1 mg HS PO 05/26/18 21:00 06/25/18 20:59 05/27/18 21:04 1 MG Ropinirole HCl (Requip Tab) 0.5 mg HS PO 05/26/18 21:00 06/25/18 20:59 05/27/18 21:03 0.5 MG Sodium Bicarbonate (Sodium Bicarbonate Tab) 650 mg BID PO 05/26/18 21:00 06/25/18 20:59 05/28/18 08:30 650 MG Tamsulosin HCl (Flomax Cap) 0.4 mg DAILY PO 05/27/18 09:00 06/26/18 08:59 05/28/18 08:32 0.4 MG Insulin Glargine (Lantus Solostar Pen) 5 units if BSG >180 3 units... Q12 SC 05/26/18 21:30 06/25/18 21:29 05/27/18 21:05 3 UNITS Insulin Aspart (novoLOG ASPART) SLIDING SCALE If C... ACHS SC 05/26/18 21:30 06/25/18 21:29 05/27/18 08:32 2 UNITS Glucose (Glucose 40% Gel) 15-30 GRAMS 15 GRAMS... UD PRN PO 05/26/18 20:15 06/25/18 20:14 Glucose (Glucose Chew Tab) 4-8 Tablets 4 Tabl... UD PRN PO 05/26/18 20:15 06/25/18 20:14 Dextrose (Dextrose 50% 50ML Syringe) 25-50ML 25ML FOR ... UD PRN IV 05/26/18 20:15 06/25/18 20:14 Glucagon (Glucagon Inj) 1 mg UD PRN SQ 05/26/18 20:15 06/25/18 20:14 Carbohydrates (Carbohydrates For Hypoglycemia) 15-30 GRAMS 15 grams if BSG 54-69... UD PRN PO 05/26/18 20:15 06/25/18 20:14 Ampicillin Sodium/ Sulbactam Sodium (Consult) 1 ea UD PRN N/A 05/26/18 20:30 06/25/18 20:29 Ampicillin Sodium/ Sulbactam Sodium 1500 mg/Sodium Chloride 104 ml @ 200 mls/hr Q24H IV 05/27/18 18:00 06/06/18 17:59 05/27/18 18:03 200 MLS/HR Pantoprazole Sodium (Protonix Tab) 40 mg DAILY PO 05/27/18 09:00 06/26/18 08:59 05/28/18 08:31 40 MG
[2018-05-28 10:46] LABS: BASO % 0.2 %; BASO ABS # 0.01 K/uL (0-0.2); EOS % 1.1 %; EOS ABS # 0.07 K/uL (0-0.5); HEMATOCRIT 24.1 % (42-52); HEMOGLOBIN 7.6 g/dL (14.0-18.0); IG# 0.02 K/uL (0.00-0.02); LYMPH % 14.9 %; LYMPH ABS # 0.92 K/uL (1.2-3.4); MEAN CELL VOLUME 91.3 fL (80-100); MEAN CORPUSCULAR HEMOGLOBIN 28.8 pg (25-34); MEAN CORPUSCULAR HGB CONC 31.5 g/dl (32-36); MEAN PLATELET VOLUME 8.8 fL (7.4-10.4); MONO % 4.7 %; MONO ABS # 0.29 K/uL (0.11-0.59); NEUT % 78.8 %; NEUT ABS # 4.88 K/uL (1.4-6.5); PLATELET COUNT 176 K/uL (130-400); RED CELL DISTRIBUTION WIDTH SD 46.7 fL (36.4-46.3); WHITE BLOOD COUNT 6.19 K/uL (4.8-10.8)
--- NOTE | 2018-05-28 11:02 | Urology Consultation ---
History General Date of Service: May 28, 2018. Primary Care Physician: Shashi Lewis III, M.D. History of Present Illness Patient is an 78-year-old white male who was recently in the hospital after having a ureteroscopy and stone extraction. Patient developed severe hematuria. He had undergone a cystoscopy and fulguration.. Hematuria persisted he underwent a cystoscopy with clot evacuation and bilateral stent placements. At that time his creatinine had elevated. He tells me he developed some dysuria and that his creatinine is again elevated. He has no flank pain. Also has a history of prostate cancer. He tells me he is voiding fine. Postvoid residuals were acceptable Laboratory Labs were reviewed and are within normal limits unless listed below. Labs are available in the chart and at [facility] Problem List Medical Problems: (1) Acute renal failure Status: Acute (2) Hydronephrosis, left Status: Acute (3) Ureteral calculus Status: Acute (4) Urinary retention Status: Acute Family History Diabetes mellitus FHx: cancer Stroke Social History Hx Tobacco Use In Past Year?: No Marital status: Occupation status: retired History of MDRO No Allergies Coded Allergies: No Known Allergies (Verified , 05/26/18) Medications Home Medications: Home Meds and Scripts Medications Dose Route/Sig Max Daily Dose Days Date Category Dose Instructions Vitamin D-3 (Cholecalciferol) 1,000 Unit Tab 1 Tab PO DAILY 05/26/18 Reported Sodium Bicarbonate (Sodium Bicarbonate (Antacid)) 650 Mg Tab 1 Tab PO BID 30 05/26/18 Reported Omeprazole 20 Mg Tab 1 Tab PO DAILY 90 05/26/18 Reported Slow-Mag Tab (Magnesium Chloride) 64 Mg Tabcr 2 Tab PO BID 05/26/18 Reported Procrit (Epoetin Aubrey) 10,000 Units Inj 10,000 Units INJ WK 05/26/18 Reported Tums (Calcium Carbonate) 500 Mg Chew 1,500 Mg PO BID 30 04/14/18 Rx Lantus Solostar (Insulin Glargine) 100 Unit/Ml Inj 2 Units SQ DAILY 04/06/18 Reported after breakfast Lipitor (Atorvastatin Calcium) 40 Mg Tab 40 Mg PO DAILY 04/06/18 Reported Requip (Ropinirole Hydrochloride) 0.5 Mg Tab 0.5 Mg PO HS 04/06/18 Reported TAKE ONE 1 MG TABLET ALONG WITH ONE 0.5 MG TABLET TO EQUAL 1.5 MG BEDTIME DOSE Clonazepam 1 Mg Tab 1 Mg PO HS 04/06/18 Reported Gabapentin 100 Mg Cap 200 Mg PO HS 04/06/18 Reported Pioglitazone Hcl 30 Mg Tab 30 Mg PO DAILY 04/06/18 Reported Amlodipine Besylate 5 Mg Tab 5 Mg PO DAILY 04/06/18 Reported Ropinirole HCl 1 Mg Tab 1 Mg PO HS 04/06/18 Reported TAKE ONE 1 MG TABLET ALONG WITH ONE 0.5 MG TABLET TO EQUAL 1.5 MG BEDTIME DOSE Tamsulosin HCl 0.4 Mg Cap 0.4 Mg PO DAILY 04/06/18 Reported Ferrous Sulfate 325 Mg Tab 325 Mg PO DAILY 03/24/18 Reported Calcitriol 0.5 Mcg Cap 0.5 Mcg PO DAILY 03/24/18 Reported Tradjenta (Linagliptin) 5 Mg Tab 5 Mg PO DAILY 03/24/18 Reported Inpatient Medications: Current Inpatient Medications Medications (Trade) Dose Ordered Sig/Rose Route Start Time Stop Time Status Last Admin Dose Admin Acetaminophen (Tylenol Tab) 650 mg Q4H PRN PO 05/26/18 20:00 06/25/18 19:59 Polyethylene (Miralax Powder Packet) 17 gm DAILY PRN PO 05/26/18 20:00 06/25/18 19:59 Ondansetron HCl (Zofran Inj) 4 mg Q6H PRN IV 05/26/18 20:00 06/25/18 19:59 Sodium Chloride 1,000 ml @ 50 mls/hr Q20H IV 05/26/18 21:30 06/25/18 21:29 05/27/18 23:36 50 MLS/HR Amlodipine Besylate (Norvasc Tab) 5 mg DAILY PO 05/27/18 09:00 06/26/18 08:59 05/28/18 08:31 5 MG Atorvastatin Calcium (Lipitor Tab) 40 mg DAILY PO 05/27/18 09:00 06/26/18 08:59 05/28/18 08:31 40 MG Calcitriol (Rocaltrol Cap) 0.5 mcg DAILY PO 05/27/18 09:00 06/26/18 08:59 05/28/18 08:31 0.5 MCG Calcium Carbonate (Tums Chew Tab) 1,500 mg BID PO 05/26/18 21:00 06/25/18 20:59 05/28/18 08:30 1,500 MG Cholecalciferol (Vitamin D Tab) 1,000 inter.unit DAILY PO 05/27/18 09:00 06/26/18 08:59 05/28/18 08:31 1,000 INTER.UNIT Clonazepam (Klonopin Tab) 1 mg HS PO 05/26/18 21:00 06/25/18 20:59 05/27/18 21:06 1 MG Ferrous Sulfate (Feosol Tab) 325 mg DAILY PO 05/27/18 09:00 06/26/18 08:59 05/28/18 08:32 325 MG Gabapentin (Neurontin Cap) 200 mg HS PO 05/26/18 21:00 06/25/18 20:59 05/27/18 21:03 200 MG Magnesium Chloride (Slow-Mag Tab) 128 mg BID PO 05/26/18 21:00 06/25/18 20:59 05/28/18 08:29 128 MG Ropinirole HCl (Requip Tab) 1 mg HS PO 05/26/18 21:00 06/25/18 20:59 05/27/18 21:04 1 MG Ropinirole HCl (Requip Tab) 0.5 mg HS PO 05/26/18 21:00 06/25/18 20:59 05/27/18 21:03 0.5 MG Sodium Bicarbonate (Sodium Bicarbonate Tab) 650 mg BID PO 05/26/18 21:00 06/25/18 20:59 05/28/18 08:30 650 MG Tamsulosin HCl (Flomax Cap) 0.4 mg DAILY PO 05/27/18 09:00 06/26/18 08:59 05/28/18 08:32 0.4 MG Insulin Glargine (Lantus Solostar Pen) 5 units if BSG >180 3 units... Q12 SC 05/26/18 21:30 06/25/18 21:29 05/27/18 21:05 3 UNITS Insulin Aspart (novoLOG ASPART) SLIDING SCALE If C... ACHS SC 05/26/18 21:30 06/25/18 21:29 05/27/18 08:32 2 UNITS Glucose (Glucose 40% Gel) 15-30 GRAMS 15 GRAMS... UD PRN PO 05/26/18 20:15 06/25/18 20:14 Glucose (Glucose Chew Tab) 4-8 Tablets 4 Tabl... UD PRN PO 05/26/18 20:15 06/25/18 20:14 Dextrose (Dextrose 50% 50ML Syringe) 25-50ML 25ML FOR ... UD PRN IV 05/26/18 20:15 06/25/18 20:14 Glucagon (Glucagon Inj) 1 mg UD PRN SQ 05/26/18 20:15 06/25/18 20:14 Carbohydrates (Carbohydrates For Hypoglycemia) 15-30 GRAMS 15 grams if BSG 54-69... UD PRN PO 05/26/18 20:15 06/25/18 20:14 Ampicillin Sodium/ Sulbactam Sodium (Consult) 1 ea UD PRN N/A 05/26/18 20:30 06/25/18 20:29 Ampicillin Sodium/ Sulbactam Sodium 1500 mg/Sodium Chloride 104 ml @ 200 mls/hr Q24H IV 05/27/18 18:00 06/06/18 17:59 05/27/18 18:03 200 MLS/HR Pantoprazole Sodium (Protonix Tab) 40 mg DAILY PO 05/27/18 09:00 06/26/18 08:59 05/28/18 08:31 40 MG Review of Systems Review of Systems Additional Comments: Review of systems reviewed from his admitting history and physical Physical Exam Vital Signs: Vital Signs Past 12 Hours Date Time Temp Pulse Resp B/P (MAP) Pulse Ox O2 Delivery O2 Flow Rate FiO2 05/28/18 08:00 Room Air 05/28/18 07:45 36.4 75 18 122/77 (92) 99 05/28/18 00:43 36.6 88 18 108/73 (85) 97 Room Air 05/28/18 00:00 Room Air Physical Exam: General Appearance: WD/WN, no apparent distress ENT: hearing grossly normal Respiratory/Chest: no respiratory distress, no accessory muscle use Neurologic/Psychiatric: alert, normal mood/affect Skin: normal color Assessment & Plan Assessment & Plan Assessment Elevated creatinine Patient's creatinine seems to be coming down it was 4.6 now 4.0 Since he had significant bleeding from his prior urologic instrumentation I would hold off on placing any stents He does have a CT scan showing bilateral hydronephrosis but he had an ultrasound done approximately 1 week after his stents were placed and he still had bilateral hydronephrosis so I do not believe that the stents would be useful in relieving the hydronephrosis as I believe it is chronic Patient tells me that he has been in discussion with the cement railroad car loader about dialysis
[2018-05-28 11:15] LABS: CALCIUM 8.5 mg/dl (8.5-10.1); CREATININE 3.37 mg/dl (0.60-1.40); POTASSIUM 4.1 mmol/L (3.5-5.1)
[2018-05-28] MEDS ORDERED: IRON SUCROSE INJ 200 MG in SODIUM CHLORIDE 0.9% 100ML 100 ML IV SCH (12:30)
--- NOTE | 2018-05-28 12:42 | Nephrology Progress Note ---
Nephrology Progress Note Date of Service: May 28, 2018. Subjective at bedside; pt cont to feel improved; feels he is voiding a large amount, still incontinent. no flank pain or F; ongoing poor appetite, no sob Objective Date Time Temp Pulse Resp B/P (MAP) Pulse Ox O2 Delivery O2 Flow Rate FiO2 05/28/18 08:00 Room Air 05/28/18 07:45 36.4 75 18 122/77 (92) 99 05/28/18 00:43 36.6 88 18 108/73 (85) 97 Room Air 05/28/18 00:00 Room Air 05/27/18 21:43 36.9 78 18 124/74 (91) 96 Room Air 05/27/18 21:13 36.8 75 18 124/77 (93) 96 Room Air 05/27/18 16:00 96 Room Air 05/27/18 15:56 36.8 84 18 120/73 (89) 96 Room Air Physical Exam: General Appearance: WD/WN, no apparent distress, + pertinent finding (sitting up in bed on RA) Eyes: EOMI ENT: hearing grossly normal Neck: supple Respiratory/Chest: no respiratory distress, + decreased breath sounds Cardiovascular: regular rate, rhythm, + pertinent finding (trace BLE edema) Abdomen: normal bowel sounds, non tender, soft Extremities: + pedal edema, + swelling (trace) Neurologic/Psych: alert, normal mood/affect, oriented x 3 (good historian) Current Inpatient Medications Medications (Trade) Dose Ordered Sig/Rose Route Start Time Stop Time Status Last Admin Dose Admin Acetaminophen (Tylenol Tab) 650 mg Q4H PRN PO 05/26/18 20:00 06/25/18 19:59 Polyethylene (Miralax Powder Packet) 17 gm DAILY PRN PO 05/26/18 20:00 06/25/18 19:59 Ondansetron HCl (Zofran Inj) 4 mg Q6H PRN IV 05/26/18 20:00 06/25/18 19:59 Sodium Chloride 1,000 ml @ 50 mls/hr Q20H IV 05/26/18 21:30 06/25/18 21:29 05/27/18 23:36 50 MLS/HR Amlodipine Besylate (Norvasc Tab) 5 mg DAILY PO 05/27/18 09:00 06/26/18 08:59 05/28/18 08:31 5 MG Atorvastatin Calcium (Lipitor Tab) 40 mg DAILY PO 05/27/18 09:00 06/26/18 08:59 05/28/18 08:31 40 MG Calcitriol (Rocaltrol Cap) 0.5 mcg DAILY PO 05/27/18 09:00 06/26/18 08:59 05/28/18 08:31 0.5 MCG Calcium Carbonate (Tums Chew Tab) 1,500 mg BID PO 05/26/18 21:00 06/25/18 20:59 05/28/18 08:30 1,500 MG Cholecalciferol (Vitamin D Tab) 1,000 inter.unit DAILY PO 05/27/18 09:00 06/26/18 08:59 05/28/18 08:31 1,000 INTER.UNIT Clonazepam (Klonopin Tab) 1 mg HS PO 05/26/18 21:00 06/25/18 20:59 05/27/18 21:06 1 MG Ferrous Sulfate (Feosol Tab) 325 mg DAILY PO 05/27/18 09:00 06/26/18 08:59 05/28/18 08:32 325 MG Gabapentin (Neurontin Cap) 200 mg HS PO 05/26/18 21:00 06/25/18 20:59 05/27/18 21:03 200 MG Magnesium Chloride (Slow-Mag Tab) 128 mg BID PO 05/26/18 21:00 06/25/18 20:59 05/28/18 08:29 128 MG Ropinirole HCl (Requip Tab) 1 mg HS PO 05/26/18 21:00 06/25/18 20:59 05/27/18 21:04 1 MG Ropinirole HCl (Requip Tab) 0.5 mg HS PO 05/26/18 21:00 06/25/18 20:59 05/27/18 21:03 0.5 MG Sodium Bicarbonate (Sodium Bicarbonate Tab) 650 mg BID PO 05/26/18 21:00 06/25/18 20:59 05/28/18 08:30 650 MG Tamsulosin HCl (Flomax Cap) 0.4 mg DAILY PO 05/27/18 09:00 06/26/18 08:59 05/28/18 08:32 0.4 MG Insulin Glargine (Lantus Solostar Pen) 5 units if BSG >180 3 units... Q12 SC 05/26/18 21:30 06/25/18 21:29 05/27/18 21:05 3 UNITS Insulin Aspart (novoLOG ASPART) SLIDING SCALE If C... ACHS SC 05/26/18 21:30 06/25/18 21:29 05/27/18 08:32 2 UNITS Glucose (Glucose 40% Gel) 15-30 GRAMS 15 GRAMS... UD PRN PO 05/26/18 20:15 06/25/18 20:14 Glucose (Glucose Chew Tab) 4-8 Tablets 4 Tabl... UD PRN PO 05/26/18 20:15 06/25/18 20:14 Dextrose (Dextrose 50% 50ML Syringe) 25-50ML 25ML FOR ... UD PRN IV 05/26/18 20:15 06/25/18 20:14 Glucagon (Glucagon Inj) 1 mg UD PRN SQ 05/26/18 20:15 06/25/18 20:14 Carbohydrates (Carbohydrates For Hypoglycemia) 15-30 GRAMS 15 grams if BSG 54-69... UD PRN PO 05/26/18 20:15 06/25/18 20:14 Ampicillin Sodium/ Sulbactam Sodium (Consult) 1 ea UD PRN N/A 05/26/18 20:30 06/25/18 20:29 Ampicillin Sodium/ Sulbactam Sodium 1500 mg/Sodium Chloride 104 ml @ 200 mls/hr Q24H IV 05/27/18 18:00 06/06/18 17:59 05/27/18 18:03 200 MLS/HR Pantoprazole Sodium (Protonix Tab) 40 mg DAILY PO 05/27/18 09:00 06/26/18 08:59 05/28/18 08:31 40 MG Last 24 Hours Test 05/27/18 16:54 05/27/18 20:14 05/28/18 07:28 05/28/18 10:27 Bedside Glucose 116 mg/dl 139 mg/dl 80 mg/dl White Blood Count 6.19 K/uL Red Blood Count 2.64 M/uL Hemoglobin 7.6 g/dL Hematocrit 24.1 % Mean Corpuscular Volume 91.3 fL Mean Corpuscular Hemoglobin 28.8 pg Mean Corpuscular Hemoglobin Concent 31.5 g/dl Platelet Count 176 K/uL Mean Platelet Volume 8.8 fL Neutrophils (%) (Auto) 78.8 % Lymphocytes (%) (Auto) 14.9 % Monocytes (%) (Auto) 4.7 % Eosinophils (%) (Auto) 1.1 % Basophils (%) (Auto) 0.2 % Neutrophils # (Auto) 4.88 K/uL Lymphocytes # (Auto) 0.92 K/uL Monocytes # (Auto) 0.29 K/uL Eosinophils # (Auto) 0.07 K/uL Basophils # (Auto) 0.01 K/uL RDW Standard Deviation 46.7 fL RDW Coefficient of Variation 14.0 % Immature Granulocyte % (Auto) 0.3 % Immature Granulocyte # (Auto) 0.02 K/uL Echinocytes 1+ Sodium Level 140 mmol/L Potassium Level 4.1 mmol/L Chloride Level 107 mmol/L Carbon Dioxide Level 21 mmol/L Anion Gap 12.0 mmol/L Blood Urea Nitrogen 54 mg/dl Creatinine 3.37 mg/dl Est Creatinine Clear Calc Drug Dose 15.8 ml/min Estimated GFR () 18.9 Estimated GFR (Non- 16.3 BUN/Creatinine Ratio 16.1 Random Glucose 136 mg/dl Calcium Level 8.5 mg/dl Assessment & Plan 78 y/o M w/ progressive CKD nearing stage 5 and recurrent LIMA in setting of past recurrent obstruction needing 3 admissions so far since 12/2017 w/ urologic intervention for same presenting 05/26 w/ worsening creatinine to 4.4 and + urine cx for Enterococcus and Klebsiella as outpt (not treated prior to admission) w/ ongoing dribbling sx and possible urinary retention at times 48 hrs prior to admission, though voiding better now. goal is to reverse anything that we can reverse here in terms of improving his renal function; pt understands he may not avoid ESRD longer term and -ongoing hydronephrosis; f/u urology recs -- for now conservative mgt and close f/u -change abtx to po w/ 5 days total therapy planned, starting w/ abtx at admission here -cont current iv rate 50 ml/hr -daily bmp, cbc -f/u pending blood culture >> NGTD -would not place albarran unless urology recommends -STRICT I/O -renal diet -no need for emergent dialysis -RUL imaging anomaly on CXR noted and need for close f/u noted as well; did d/w pt who states he had RUL PNA as child -iron screen 10% as outpt on 05/13 and low index of suspicion for bacteremia > will cont to load iron given dropping overall but today steady hgb (dilutional + CKD); he had 20K units epo yesterday; he is est w/ anemia clinic as outpt -reasonable from renal standpoint for d/c home with continued close lab and anemia and neph and urology f/u -would not transfuse unless sx or hgb <7; he gets cbc 2x wkly as outpt currently Appreciate consult will follow with you. Care coordinated w/ Dr Rao.
[2018-05-28 15:42] VITALS: BP 98/58; PULSE 73; TEMP 36.8; O2SAT 98
[2018-05-28] MEDS: AMPICILLIN/SULBACTAM SOD INJ 1,500 MG in SODIUM CHLORIDE 0.9% 100ML 100 ML IV SCH (18:08)
[2018-05-28] MEDS: SODIUM CHLORIDE 0.9% 1000ML 1,000 ML IV SCH (19:20)
[2018-05-28] MEDS: CLONAZEPAM 1 MG TAB PO SCH (20:26)
[2018-05-28] MEDS: ROPINIROLE HCL 1 MG TAB PO SCH (20:27)
[2018-05-28] MEDS: GABAPENTIN 100 MG CAP PO SCH (20:27)
[2018-05-28] MEDS: ROPINIROLE HCL 0.25 MG TAB PO SCH (20:28)
[2018-05-28 22:25] VITALS: BP 107/65; PULSE 66; TEMP 36.7; O2SAT 96
[2018-05-29 07:35] VITALS: BP 124/69; PULSE 71; TEMP 36.6; O2SAT 98
[2018-05-29] MEDS: CALCITRIOL 0.5 MCG CAP PO SCH (07:58)
[2018-05-29] MEDS: TAMSULOSIN HCL 0.4 MG CAP PO SCH (07:58)
[2018-05-29] MEDS: ATORVASTATIN 40 MG TAB PO SCH (07:58)
[2018-05-29] MEDS: AMLODIPINE BESYLATE 5 MG TAB PO SCH (07:58)
[2018-05-29] MEDS: CALCIUM CARBONATE 500 MG CHEWABLE PO SCH (07:59)
[2018-05-29] MEDS: SODIUM BICARBONATE 650 MG TAB PO SCH (07:59)
[2018-05-29] MEDS: CHOLECALCIFEROL 1000 INTER.UNIT TAB PO SCH (08:00)
[2018-05-29] MEDS: PANTOprazole SOD 40 MG TAB PO SCH (08:00)
[2018-05-29] MEDS: MAGNESIUM CHLORIDE 64MG DELAYED REL TAB PO SCH (08:00)
[2018-05-29] MEDS: FERROUS SULFATE 325 MG TAB PO SCH (08:01)
[2018-05-29] MEDS: INSULIN ASPART 100 UNITS/ML 3 ML PEN SC SCH ×2 (08:19→12:54)
[2018-05-29] MEDS: INSULIN GLARGINE SOLOSTAR 100 UNITS/ML 3 ML PEN SC SCH (08:21)
--- NOTE | 2018-05-29 10:19 | Progress Note ---
Progress Note Date of Service May 29, 2018. Progress Note Patient's afebrile vital signs are stable He has no complaints He feels he is voiding fine Creatinine is down to 3.3 Assessment-elevated creatinine The patient continues to improve Plans per nephrology
[2018-05-29 11:41] LABS: HEMATOCRIT 23.9 % (42-52); HEMOGLOBIN 7.4 g/dL (14.0-18.0); MEAN CELL VOLUME 92.3 fL (80-100); MEAN CORPUSCULAR HEMOGLOBIN 28.6 pg (25-34); MEAN PLATELET VOLUME 8.7 fL (7.4-10.4); PLATELET COUNT 175 K/uL (130-400); RED CELL DISTRIBUTION WIDTH CV 14.1 % (11.5-14.5); RED CELL DISTRIBUTION WIDTH SD 47.1 fL (36.4-46.3); WHITE BLOOD COUNT 5.94 K/uL (4.8-10.8)
[2018-05-29 12:06] LABS: CALCIUM 8.2 mg/dl (8.5-10.1); CREATININE 3.29 mg/dl (0.60-1.40); POTASSIUM 4.1 mmol/L (3.5-5.1)
--- NOTE | 2018-05-29 12:48 | Progress Note ---
Subjective Date of Service: May 29, 2018. Subjective Pt evaluation today including: conversation w/ patient, physical exam, lab review, review of studies, conversation w/ financial operations consultant, review of inpatient medication list Saw/examined the patient in room 275 He's doing well, ambulating well, no dizziness Improved PO intake and appetite Denies any other symptoms Eager to go home Problem List Medical Problems: (1) Acute renal failure Status: Acute (2) Hydronephrosis, left Status: Acute (3) Ureteral calculus Status: Acute (4) Urinary retention Status: Acute Review of Systems Constitutional: No fever, No chills, No weakness Respiratory: No cough, No sputum, No shortness of breath Cardiac: No chest pain, No edema, No palpitations Abdomen: No pain, No nausea, No vomiting, No diarrhea Medications Current Inpatient Medications Medications (Trade) Dose Ordered Sig/Rose Route Start Time Stop Time Status Last Admin Dose Admin Acetaminophen (Tylenol Tab) 650 mg Q4H PRN PO 05/26/18 20:00 06/25/18 19:59 Polyethylene (Miralax Powder Packet) 17 gm DAILY PRN PO 05/26/18 20:00 06/25/18 19:59 Ondansetron HCl (Zofran Inj) 4 mg Q6H PRN IV 05/26/18 20:00 06/25/18 19:59 Sodium Chloride 1,000 ml @ 50 mls/hr Q20H IV 05/26/18 21:30 06/25/18 21:29 05/28/18 19:20 50 MLS/HR Amlodipine Besylate (Norvasc Tab) 5 mg DAILY PO 05/27/18 09:00 06/26/18 08:59 05/29/18 07:58 5 MG Atorvastatin Calcium (Lipitor Tab) 40 mg DAILY PO 05/27/18 09:00 06/26/18 08:59 05/29/18 07:58 40 MG Calcitriol (Rocaltrol Cap) 0.5 mcg DAILY PO 05/27/18 09:00 06/26/18 08:59 05/29/18 07:58 0.5 MCG Calcium Carbonate (Tums Chew Tab) 1,500 mg BID PO 05/26/18 21:00 06/25/18 20:59 05/29/18 07:59 1,500 MG Cholecalciferol (Vitamin D Tab) 1,000 inter.unit DAILY PO 05/27/18 09:00 06/26/18 08:59 05/29/18 08:00 1,000 INTER.UNIT Clonazepam (Klonopin Tab) 1 mg HS PO 05/26/18 21:00 06/25/18 20:59 05/28/18 20:26 1 MG Ferrous Sulfate (Feosol Tab) 325 mg DAILY PO 05/27/18 09:00 06/26/18 08:59 05/29/18 08:01 325 MG Gabapentin (Neurontin Cap) 200 mg HS PO 05/26/18 21:00 06/25/18 20:59 05/28/18 20:27 200 MG Magnesium Chloride (Slow-Mag Tab) 128 mg BID PO 05/26/18 21:00 06/25/18 20:59 05/29/18 08:00 128 MG Ropinirole HCl (Requip Tab) 1 mg HS PO 05/26/18 21:00 06/25/18 20:59 05/28/18 20:27 1 MG Ropinirole HCl (Requip Tab) 0.5 mg HS PO 05/26/18 21:00 06/25/18 20:59 05/28/18 20:28 0.5 MG Sodium Bicarbonate (Sodium Bicarbonate Tab) 650 mg BID PO 05/26/18 21:00 06/25/18 20:59 05/29/18 07:59 650 MG Tamsulosin HCl (Flomax Cap) 0.4 mg DAILY PO 05/27/18 09:00 06/26/18 08:59 05/29/18 07:58 0.4 MG Insulin Glargine (Lantus Solostar Pen) 5 units if BSG >180 3 units... Q12 SC 05/26/18 21:30 06/25/18 21:29 05/28/18 20:33 3 UNITS Insulin Aspart (novoLOG ASPART) SLIDING SCALE If C... ACHS SC 05/26/18 21:30 06/25/18 21:29 05/29/18 08:19 6 UNITS Glucose (Glucose 40% Gel) 15-30 GRAMS 15 GRAMS... UD PRN PO 05/26/18 20:15 06/25/18 20:14 Glucose (Glucose Chew Tab) 4-8 Tablets 4 Tabl... UD PRN PO 05/26/18 20:15 06/25/18 20:14 Dextrose (Dextrose 50% 50ML Syringe) 25-50ML 25ML FOR ... UD PRN IV 05/26/18 20:15 06/25/18 20:14 Glucagon (Glucagon Inj) 1 mg UD PRN SQ 05/26/18 20:15 06/25/18 20:14 Carbohydrates (Carbohydrates For Hypoglycemia) 15-30 GRAMS 15 grams if BSG 54-69... UD PRN PO 05/26/18 20:15 06/25/18 20:14 Ampicillin Sodium/ Sulbactam Sodium (Consult) 1 ea UD PRN N/A 05/26/18 20:30 06/25/18 20:29 Ampicillin Sodium/ Sulbactam Sodium 1500 mg/Sodium Chloride 104 ml @ 200 mls/hr Q24H IV 05/27/18 18:00 06/06/18 17:59 05/28/18 18:08 200 MLS/HR Pantoprazole Sodium (Protonix Tab) 40 mg DAILY PO 05/27/18 09:00 06/26/18 08:59 05/29/18 08:00 40 MG Objective Vital Signs Date Time Temp Pulse Resp B/P (MAP) Pulse Ox O2 Delivery O2 Flow Rate FiO2 05/29/18 08:00 Room Air 05/29/18 07:35 36.6 71 18 124/69 (87) 98 05/28/18 22:25 36.7 66 18 107/65 (79) 96 Room Air 05/28/18 20:00 Room Air 05/28/18 15:42 36.8 73 16 98/58 (71) 98 Room Air Physical Exam General Appearance: no apparent distress Respiratory/Chest: chest non-tender, lungs clear, normal breath sounds, no respiratory distress, no accessory muscle use Cardiovascular: regular rate, rhythm, no edema, no murmur Extremities: normal range of motion, non-tender, normal inspection, no pedal edema, no calf tenderness Neurologic/Psychiatric: no motor/sensory deficits, alert, normal mood/affect Laboratory Results Last 24 Hours Test 05/28/18 16:18 05/28/18 20:09 05/29/18 07:18 05/29/18 11:16 Bedside Glucose 95 mg/dl 136 mg/dl 103 mg/dl 97 mg/dl Test 05/29/18 11:30 White Blood Count 5.94 K/uL Red Blood Count 2.59 M/uL Hemoglobin 7.4 g/dL Hematocrit 23.9 % Mean Corpuscular Volume 92.3 fL Mean Corpuscular Hemoglobin 28.6 pg Mean Corpuscular Hemoglobin Concent 31.0 g/dl RDW Standard Deviation 47.1 fL RDW Coefficient of Variation 14.1 % Platelet Count 175 K/uL Mean Platelet Volume 8.7 fL Sodium Level 139 mmol/L Potassium Level 4.1 mmol/L Chloride Level 108 mmol/L Carbon Dioxide Level 22 mmol/L Anion Gap 9.0 mmol/L Blood Urea Nitrogen 51 mg/dl Creatinine 3.29 mg/dl Est Creatinine Clear Calc Drug Dose 16.2 ml/min Estimated GFR () 19.4 Estimated GFR (Non- 16.8 BUN/Creatinine Ratio 15.4 Random Glucose 77 mg/dl Calcium Level 8.2 mg/dl Assessment and Plan This is an 78 year old male with a past medical history of CKD stage IV, HTN, HLD, DM2, GERD, hx. of obstruction, prostate CA s/p radiation - presented with worsening kidney function, UTI and hydronephrosis Acute Kidney Injury superimposed on CKD stage IV Enterococcal/Klebsiella UTI Hydronephrosis - creatinine 4.59 on admission - baseline is lower 3's - initially treated with IV abx. and gentle IV hydration - creatinine slowly improved to 3.29 on 05/29 - plan to d/c home with Ampicillin 500mg TID and Cipro x 5 days - appreciate urology input, hx. of kidney stones and stenting - no further intervention at this time Anemia of Kidney Disease - Hgb down to 7.4 - no need for transfusion - continue Procrit as outpatient weekly - continue iron supplementation - weekly blood work as outpatient Abnormal CXR - Nonspecific 14 mm right upper lung zone opacity, in an area of previously identified pneumonia. - This could represent a postinflammatory residual. - Close follow-up will be necessary to exclude an underlying neoplasm. - repeat CXR in 1-2 weeks DM II - Hold oral agents - Monitor BSG - Basal bolus insulin per protocol HTN - Stable - Continue amlodipine Hx. of Prostate CA s/p radiation - Continue Flomax GERD - Continue PPI RLS - Continue gabapentin, Requip DVT Prophylaxis - SCDs FULL CODE
[2018-05-29] MEDS ORDERED: AMPI500C9 PO (12:59)
[2018-05-29] MEDS ORDERED: CIPR250T26 PO (12:59)
--- NOTE | 2018-05-29 13:11 | Discharge Instructions ---
Discharge Instructions Date of Service May 29, 2018. Admission Reason for Admission: Bacilio (Acute Kidney Injury) Uti(Urinary Tract Discharge Discharge Diagnosis / Problem: Acute Kidney Injury superimposed CKD stage IV, UTI Discharge Goals Goal(s): Decrease discomfort, Improve function, Diagnostic testing, Therapeutic intervention Activity Recommendations Activity Limitations: resume your previous activity . Instructions / Follow-Up Instructions / Follow-Up Please follow-up with Dr. Lewis on June 02 at 10:45AM * You will be discharged with Ampicillin and Ciprofloxacin (antibiotics) * You will need blood work (CBC and BMP) on - to check your Hemoglobin and kidney function * Continue Procrit every Wednesday * Continue to take your iron supplements * Outpatient follow-up with nephrology and urology * You will need a repeat chest x-ray in 1-2 weeks as an outpatient Current Hospital Diet Patient's current hospital diet: Renal Diet Discharge Diet Recommended Diet: Renal Diet Pending Studies Studies pending at discharge: no Medical Emergencies . Who to Call and When: Medical Emergencies: If at any time you feel your situation is an emergency, please call 911 immediately. . Non-Emergent Contact Non-Emergency issues call your: Primary Care Provider, Turbine Attendant, Urologist . . "Provider Documentation" section prepared by Jose J Mart. .
--- NOTE | 2018-05-29 13:13 | Discharge Summary ---
Discharge Summary Date of Service May 29, 2018. Discharge Summary Admission Date: May 26, 2018 at 19:47 Discharge Date: May 29, 2018 Discharge Disposition: Home Principal Diagnosis: Acute Kidney Injury superimposed on CKD stage IV Enterococcal/Klebsiella UTI Hydronephrosis Anemia of Kidney Disease Abnormal CXR DM II HTN Hx. of Prostate CA s/p radiation GERD RLS Medication Reconciliation New Medications: Ampicillin (Ampicillin) 500 Mg Cap 1 CAP PO BID for 5 Days, #10 CAP Ciprofloxacin (Ciprofloxacin HCl) 250 Mg Tab 250 MG PO BID for 5 Days, #10 TABS Continued Medications: Amlodipine Besylate (Amlodipine Besylate) 5 Mg Tab 5 MG PO DAILY Atorvastatin (Lipitor) 40 Mg Tab 40 MG PO DAILY Calcitriol (Calcitriol) 0.5 Mcg Cap 0.5 MCG PO DAILY Calcium Carbonate (Tums) 500 Mg Chew 1500 MG PO BID for 30 Days, #180 TAB Cholecalciferol (Vitamin D-3) 1,000 Unit Tab 1 TAB PO DAILY Clonazepam (Clonazepam) 1 Mg Tab 1 MG PO HS Epoetin Aubrey (Procrit) 10,000 Units Inj 49194 UNITS INJ WK Ferrous Sulfate (Ferrous Sulfate) 325 Mg Tab 325 MG PO DAILY Gabapentin (Gabapentin) 100 Mg Cap 200 MG PO HS Insulin Glargine (Lantus Solostar) 100 Unit/Ml Inj 2 UNITS SQ DAILY, VIAL after breakfast Linagliptin (Tradjenta) 5 Mg Tab 5 MG PO DAILY Magnesium Chloride (Slow-Mag Tab) 64 Mg Tabcr 2 TAB PO BID, TAB Omeprazole (Omeprazole) 20 Mg Tab 1 TAB PO DAILY for 90 Days, #90 TAB 1 Refill Pioglitazone Hcl (Pioglitazone Hcl) 30 Mg Tab 30 MG PO DAILY Ropinirole HCl (Ropinirole HCl) 1 Mg Tab 1 MG PO HS TAKE ONE 1 MG TABLET ALONG WITH ONE 0.5 MG TABLET TO EQUAL 1.5 MG BEDTIME DOSE Ropinirole Hydrochloride (Requip) 0.5 Mg Tab 0.5 MG PO HS TAKE ONE 1 MG TABLET ALONG WITH ONE 0.5 MG TABLET TO EQUAL 1.5 MG BEDTIME DOSE Sodium Bicarbonate (Antacid) (Sodium Bicarbonate) 650 Mg Tab 1 TAB PO BID for 30 Days, #60 TAB 5 Refills Tamsulosin HCl (Tamsulosin HCl) 0.4 Mg Cap 0.4 MG PO DAILY Admission Information HPI (per Admitting provider): Pt is 78 y/o M with PMH CKD IV, HTN, dyslipidemia, DM II, GERD, kidney stones, prostate CA s/p radiation presented to ER from referral by Dr. Craig for UTI and LIMA on CKD. Pt with hx worsening renal functions and had UA done out patient with Dr Craig nephrology. Creatinine was low 3's in May then up to 4.4 today. Had urine culture 05/23/18: Klebsiella pneumoniae, enterococcus sensitive to unasyn. Pt with hx urinary retention. Had chronic albarran catheter removed 13 days ago. Pt states this morning started with dysuria, previously was not having any. He has ongoing urinary incontinence/dribbling. Patient reports has been urinating. Denies flank pain/back pain, abdominal pain, hematuria. 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 Patient reports has discussed dialysis in future with Dr Craig if continued worsening renal functions. Pt started following with anemia clinic - Procrit once weekly to be started. Past several months with decreased appetite. Patient reports 20 pound weight loss since January. Denies fever/chills, diaphoresis, N/V/D/C, GARRIDO, dizzines, CP, SOB, palpitations, cough, extremity edema, rashes, melena, hematochezia, epistaxis. Physical Exam (per Admitting): General Appearance: WD/WN, no apparent distress Head: normocephalic, atraumatic Eyes: normal inspection, sclerae normal ENT: hearing grossly normal, pharynx normal, + pertinent finding (mucous membranes moist) Neck: supple, trachea midline Respiratory/Chest: lungs clear, normal breath sounds, no respiratory distress Cardiovascular: regular rate, rhythm Abdomen/GI: normal bowel sounds, non tender, soft Back: no CVA tenderness Extremities/Musculoskelatal: no calf tenderness, normal capillary refill, + pedal edema (1+ Bilateral pre-tibial) Neurologic/Psych: alert, normal mood/affect, oriented x 3 Skin: warm/dry Hospital Course This is an 78 year old male with a past medical history of CKD stage IV, HTN, HLD, DM2, GERD, hx. of obstruction, prostate CA s/p radiation - presented with worsening kidney function, UTI and hydronephrosis Acute Kidney Injury superimposed on CKD stage IV Enterococcal/Klebsiella UTI Hydronephrosis - creatinine 4.59 on admission - baseline is lower 3's - initially treated with IV abx. and gentle IV hydration - creatinine slowly improved to 3.29 on 05/29 - plan to d/c home with Ampicillin 500mg TID and Cipro x 5 days - appreciate urology input, hx. of kidney stones and stenting - no further intervention at this time Anemia of Kidney Disease - Hgb down to 7.4 - no need for transfusion - continue Procrit as outpatient weekly - continue iron supplementation - weekly blood work as outpatient Abnormal CXR - Nonspecific 14 mm right upper lung zone opacity, in an area of previously identified pneumonia. - This could represent a postinflammatory residual. - Close follow-up will be necessary to exclude an underlying neoplasm. - repeat CXR in 1-2 weeks DM II - Hold oral agents - Monitor BSG - Basal bolus insulin per protocol HTN - Stable - Continue amlodipine Hx. of Prostate CA s/p radiation - Continue Flomax GERD - Continue PPI RLS - Continue gabapentin, Requip DVT Prophylaxis - SCDs FULL CODE Total time spent on discharge = 45 minutes This includes examination of the patient, discharge planning, medication reconciliation, and communication with other providers. Discharge Instructions Please follow-up with Dr. Lewis on June 02 at 10:45AM * You will be discharged with Ampicillin and Ciprofloxacin (antibiotics) * You will need blood work (CBC and BMP) on - to check your Hemoglobin and kidney function * Continue Procrit every Wednesday * Continue to take your iron supplements * Outpatient follow-up with nephrology and urology * You will need a repeat chest x-ray in 1-2 weeks as an outpatient
[2018-05-29 13:50] VITALS: BP 124/69; PULSE 71; TEMP 36.6; O2SAT 98
--- NOTE | 2018-05-29 15:27 | Nephrology Progress Note ---
Nephrology Progress Note Date of Service: May 29, 2018. Subjective at bedside; pt cont to feel improved; still incontinent/unchanged. no flank pain or F; ongoing poor appetite, no sob Objective Date Time Temp Pulse Resp B/P (MAP) Pulse Ox O2 Delivery O2 Flow Rate FiO2 05/29/18 08:00 Room Air 05/29/18 07:35 36.6 71 18 124/69 (87) 98 05/28/18 22:25 36.7 66 18 107/65 (79) 96 Room Air 05/28/18 20:00 Room Air 05/28/18 15:42 36.8 73 16 98/58 (71) 98 Room Air Physical Exam: General Appearance: WD/WN, no apparent distress, + pertinent finding (sitting up in bed on RA) Eyes: EOMI ENT: hearing grossly normal Neck: supple Respiratory/Chest: no respiratory distress, + decreased breath sounds Cardiovascular: regular rate, rhythm, + pertinent finding (trace BLE edema) Abdomen: normal bowel sounds, non tender, soft Extremities: + pedal edema, + swelling (trace) Neurologic/Psych: alert, normal mood/affect, oriented x 3 (good historian) Current Inpatient Medications Medications (Trade) Dose Ordered Sig/Rose Route Start Time Stop Time Status Last Admin Dose Admin Acetaminophen (Tylenol Tab) 650 mg Q4H PRN PO 05/26/18 20:00 06/25/18 19:59 Polyethylene (Miralax Powder Packet) 17 gm DAILY PRN PO 05/26/18 20:00 06/25/18 19:59 Ondansetron HCl (Zofran Inj) 4 mg Q6H PRN IV 05/26/18 20:00 06/25/18 19:59 Sodium Chloride 1,000 ml @ 50 mls/hr Q20H IV 05/26/18 21:30 06/25/18 21:29 05/28/18 19:20 50 MLS/HR Amlodipine Besylate (Norvasc Tab) 5 mg DAILY PO 05/27/18 09:00 06/26/18 08:59 05/29/18 07:58 5 MG Atorvastatin Calcium (Lipitor Tab) 40 mg DAILY PO 05/27/18 09:00 06/26/18 08:59 05/29/18 07:58 40 MG Calcitriol (Rocaltrol Cap) 0.5 mcg DAILY PO 05/27/18 09:00 06/26/18 08:59 05/29/18 07:58 0.5 MCG Calcium Carbonate (Tums Chew Tab) 1,500 mg BID PO 05/26/18 21:00 06/25/18 20:59 05/29/18 07:59 1,500 MG Cholecalciferol (Vitamin D Tab) 1,000 inter.unit DAILY PO 05/27/18 09:00 06/26/18 08:59 05/29/18 08:00 1,000 INTER.UNIT Clonazepam (Klonopin Tab) 1 mg HS PO 05/26/18 21:00 06/25/18 20:59 05/28/18 20:26 1 MG Ferrous Sulfate (Feosol Tab) 325 mg DAILY PO 05/27/18 09:00 06/26/18 08:59 05/29/18 08:01 325 MG Gabapentin (Neurontin Cap) 200 mg HS PO 05/26/18 21:00 06/25/18 20:59 05/28/18 20:27 200 MG Magnesium Chloride (Slow-Mag Tab) 128 mg BID PO 05/26/18 21:00 06/25/18 20:59 05/29/18 08:00 128 MG Ropinirole HCl (Requip Tab) 1 mg HS PO 05/26/18 21:00 06/25/18 20:59 05/28/18 20:27 1 MG Ropinirole HCl (Requip Tab) 0.5 mg HS PO 05/26/18 21:00 06/25/18 20:59 05/28/18 20:28 0.5 MG Sodium Bicarbonate (Sodium Bicarbonate Tab) 650 mg BID PO 05/26/18 21:00 06/25/18 20:59 05/29/18 07:59 650 MG Tamsulosin HCl (Flomax Cap) 0.4 mg DAILY PO 05/27/18 09:00 06/26/18 08:59 05/29/18 07:58 0.4 MG Insulin Glargine (Lantus Solostar Pen) 5 units if BSG >180 3 units... Q12 SC 05/26/18 21:30 06/25/18 21:29 05/28/18 20:33 3 UNITS Insulin Aspart (novoLOG ASPART) SLIDING SCALE If C... ACHS SC 05/26/18 21:30 06/25/18 21:29 05/29/18 08:19 6 UNITS Glucose (Glucose 40% Gel) 15-30 GRAMS 15 GRAMS... UD PRN PO 05/26/18 20:15 06/25/18 20:14 Glucose (Glucose Chew Tab) 4-8 Tablets 4 Tabl... UD PRN PO 05/26/18 20:15 06/25/18 20:14 Dextrose (Dextrose 50% 50ML Syringe) 25-50ML 25ML FOR ... UD PRN IV 05/26/18 20:15 06/25/18 20:14 Glucagon (Glucagon Inj) 1 mg UD PRN SQ 05/26/18 20:15 06/25/18 20:14 Carbohydrates (Carbohydrates For Hypoglycemia) 15-30 GRAMS 15 grams if BSG 54-69... UD PRN PO 05/26/18 20:15 06/25/18 20:14 Ampicillin Sodium/ Sulbactam Sodium (Consult) 1 ea UD PRN N/A 05/26/18 20:30 06/25/18 20:29 Ampicillin Sodium/ Sulbactam Sodium 1500 mg/Sodium Chloride 104 ml @ 200 mls/hr Q24H IV 05/27/18 18:00 06/06/18 17:59 05/28/18 18:08 200 MLS/HR Pantoprazole Sodium (Protonix Tab) 40 mg DAILY PO 05/27/18 09:00 06/26/18 08:59 05/29/18 08:00 40 MG Last 24 Hours Test 05/28/18 16:18 05/28/18 20:09 05/29/18 07:18 05/29/18 11:30 Bedside Glucose 95 mg/dl 136 mg/dl 103 mg/dl Assessment & Plan 78 y/o M w/ progressive CKD nearing stage 5 and recurrent LIMA in setting of past recurrent obstruction needing 3 admissions so far since 12/2017 w/ urologic intervention for same presenting 05/26 w/ worsening creatinine to 4.4 and + urine cx for Enterococcus and Klebsiella as outpt (not treated prior to admission) w/ ongoing dribbling sx and possible urinary retention at times 48 hrs prior to admission, though voiding better now. goal is to reverse anything that we can reverse here in terms of improving his renal function; pt understands he may not avoid ESRD longer term and -ongoing hydronephrosis; urology recs for now conservative mgt and close f/u -change abtx to po w/ 5 days total therapy planned, starting w/ abtx at admission here -cont current iv rate 50 ml/hr until d/c -daily bmp, cbc -f/u pending blood culture >> NGTD -would not place albarran unless urology recommends -STRICT I/O -renal diet -no need for emergent dialysis -RUL imaging anomaly on CXR noted and need for close f/u noted as well; did d/w pt who states he had RUL PNA as child -iron screen 10% as outpt on 05/13 and low index of suspicion for bacteremia > will cont to load iron given dropping overall but today steady hgb (dilutional + CKD); he had 20K units epo yesterday; he is est w/ anemia clinic as outpt -reasonable from renal standpoint for d/c home with continued close lab and anemia and neph and urology f/u -would not transfuse unless sx (today no sx) or hgb <7; he gets cbc 2x wkly as outpt currently >> next labs as outpt on -will coordinate f/u w/ anemia clinic and refer for avf creation Appreciate consult will follow with you. Care coordinated w/ Dr Mart
== END 2018-05-29 14:30 | disposition home or self-care (01) | DRG 683 ==
LOC: C.EDB 16:48 → C.MED 19:47 → EDBEDREQ 20:16 → ENRESERV 20:24
PROVIDERS: ADMIT Internal Medicine; ATTEND Family Medicine
DX: N17.9 Acute kidney failure, unspecified (principal); N39.0 Urinary tract infection, site not specified; N13.30 Unspecified hydronephrosis; E11.21 Type 2 diabetes mellitus with diabetic nephropathy; N18.4 Chronic kidney disease, stage 4 (severe); K21.9 Gastro-esophageal reflux disease without esophagitis; I12.9 Hypertensive chronic kidney disease with stage 1 through stage 4 chronic kidney disease, or unspecified chronic kidney disease; Z85.46 Personal history of malignant neoplasm of prostate; Z98.84 Bariatric surgery status; Z83.3 Family history of diabetes mellitus; Z82.49 Family history of ischemic heart disease and other diseases of the circulatory system; Z87.891 Personal history of nicotine dependence; Z79.4 Long term (current) use of insulin; D63.1 Anemia in chronic kidney disease; E78.5 Hyperlipidemia, unspecified; E83.42 Hypomagnesemia; Z92.3 Personal history of irradiation; B96.1 Klebsiella pneumoniae [K. pneumoniae] as the cause of diseases classified elsewhere; Z87.442 Personal history of urinary calculi; B95.2 Enterococcus as the cause of diseases classified elsewhere; G25.81 Restless legs syndrome; R33.9 Retention of urine, unspecified; M81.0 Age-related osteoporosis without current pathological fracture; R93.8 Abnormal findings on diagnostic imaging of other specified body structures